=== PATIENT | male | born 1950 | race Caucasian/White ===

== ENCOUNTER 2019-04-01 11:00 | Observation (INO) | payer BC, MEDICARE ==
[~2019-04-01] VITALS: Ht 175.3 cm; Wt 102.1 kg
[~2019-04-01 11:00] MED LIST: ASPIRIN81 M1 PO; CADUET 10 MG-21 EACH PO; FLOMAX0.4 MG PO; PANTOPRAZOLE SO40 MG PO; PLAVIX75 MG PO
--- OUTSIDE RECORDS SUMMARY | 2019-04-01 11:04 | XMS REPORT | Summary of Care ---
Author Author [facility] Organization [facility] Address Unknown Phone Unavailable Encounter NICOLAS Fletcher(MEENA) [id number] Date(s): 03/11/16 - 03/11/16 [facility] [address] [place] [address]- Discharge Disposition: Home Attending Physician: Todd Medellin MD Referring Physician: Todd Medellin MD Vital Signs 1 2 3 Most recent to oldest [Reference Range]: 175.26 cm (02/24/16 11:16 AM) Height 125/50 mmHg (03/11/16 10:45 AM) 119/57 mmHg (03/11/16 10:30 AM) 119/56 mmHg (03/11/16 10:15 AM) Blood Pressure [90-140/60-90 mmHg] 16 BRMIN (03/11/16 10:45 AM) 13 BRMIN *LOW* (03/11/16 10:30 AM) 23 BRMIN *HI* (03/11/16 10:15 AM) Respiratory Rate [14-20 BRMIN] 62 bpm (03/11/16 10:45 AM) 60 bpm (03/11/16 6:52 AM) 64 bpm (02/24/16 11:17 AM) Peripheral Pulse Rate [60-100 bpm] 103.807 kg (02/24/16 11:16 AM) Weight 33.8 m2 (02/24/16 11:16 AM) Body Mass Index Problem List Condition Effective Dates Status Health Status Informant Arthritis(Confirmed) Resolved CAD - Coronary Active artery disease(Confirmed) Chicken Resolved pox(Confirmed) GERD Active (gastroesophageal reflux disease)(Confirmed) Hypertension(Confirm Active ed) Hypertension(Confirm Resolved ed) Inguinal Resolved hernia(Confirmed)1 Obesity(Confirmed) Active Reflux(Confirmed) Resolved Sleep Active apnea(Confirmed) Sleep Resolved apnea(Confirmed) 1Bilateral Allergies, Adverse Reactions, Alerts Substance Reaction Severity Status Carafate Lightheaded/Dizzy Active Medications acetaminophen (ANES) Route: IV, Drug form: INJ, ONCE, Stop date: 03/11/16 9:32:00 CDT Start Date: 03/11/16 Stop Date: 03/11/16 Status: Completed albuterol 0.083% inhalation solution 2.49 mg, 3 mL, Route: NEB, Drug form: SOLN, Q20Min, Dosing Weight 104.688, kg, P RN Wheezing, Priority: STAT, Start date: 03/11/16 10:04:00 CDT, Duration: 30 day , Stop date: 04/10/16 10:03:00 CDT Notes: SEE RT DOCUMENTATION (Same as: Nelida) Start Date: 03/11/16 Stop Date: 03/12/16 Status: Discontinued Ancef 2 gm, 100 mL, Route: IVPB, Drug form: INJ, ONCE, Dosing Weight 103.807, kg, Star t date: 02/24/16 11:37:00, Duration: 1 doses or times, Stop date: 02/24/16 11:37 :00, Surgical Prophylaxis Only; For patients < 120 kg Notes: Same as: Ancef Start Date: 02/24/16 Stop Date: 02/24/16 Status: Ordered ceFAZolin (ANES) Route: IV, Drug form: INJ, ONCE, Stop date: 03/11/16 8:21:00 CDT Start Date: 03/11/16 Stop Date: 03/11/16 Status: Completed Colace 100 mg oral capsule 100 mg=1 cap, PO, BID, PRN Constipation, # 20 cap, 0 Refill(s), Pharmacy: [id number] Start Date: 03/11/16 Status: Ordered Dextrose 5% with 0.9% NaCl IV 1,000 mL 1,000 mL, Rate: 125 ml/hr, Infuse over: 8 hr, Route: IV, Dosing Weight 104.688 k g, Total Volume: 1,000, Start date: 03/11/16 10:04:00 CDT, Duration: 30 day, Sto p date: 04/10/16 10:03:00 CDT Start Date: 03/11/16 Stop Date: 03/12/16 Status: Discontinued Dextrose 5% with 0.9% NaCl IV 1000 mL 1,000 mL, Rate: 25 ml/hr, Infuse over: 40 hr, Route: IV, Dosing Weight 104.688 k g, Total Volume: 1,000, Start date: 03/11/16 6:11:00 CDT, Duration: 30 day, Stop date: 04/10/16 6:10:00 CDT Start Date: 03/11/16 Stop Date: 03/11/16 Status: Discontinued diphenhydrAMINE 12.5 mg, 0.25 mL, Route: IVP, Drug form: INJ, Q6H, Dosing Weight 104.688, kg, FL N Itching, Start date: 03/11/16 10:04:00 CDT, Duration: 30 day, Stop date: 04/10 10:03:00 CDT Notes: (Same as: Benadryl) Start Date: 03/11/16 Stop Date: 03/12/16 Status: Discontinued ePHEDrine (ANES) Route: IV, Drug form: INJ, ONCE, Stop date: 03/11/16 8:51:00 CDT Start Date: 03/11/16 Stop Date: 03/11/16 Status: Completed fentaNYL 25 microgram, 0.5 mL, Route: IVP, Drug form: INJ, Q5Min, Dosing Weight 104.688, kg, PRN Pain Score 4-6, Start date: 03/11/16 10:04:00 CDT, Duration: 4 doses or times, Stop date: Limited # of times Notes: (Same as: Sublimaze) Preservative free. Start Date: 03/11/16 Stop Date: 03/12/16 Status: Discontinued fentaNYL (ANES) Route: IV, Drug form: INJ, ONCE, Stop date: 03/11/16 8:26:00 CDT Start Date: 03/11/16 Stop Date: 03/11/16 Status: Completed flumazenil 0.2 mg, 2 mL, Route: IVP, Drug form: INJ, PRN, Dosing Weight 104.688, kg, PRN Be nzodiazepine Reversal, Initial dose, Start date: 03/11/16 10:04:00 CDT, Duration : 30 day, Stop date: 04/10/16 10:03:00 CDT Notes: (Same as: Romazicon) Start Date: 03/11/16 Stop Date: 03/12/16 Status: Discontinued glycopyrrolate (ANES) Route: IV, Drug form: INJ, ONCE, Stop date: 03/11/16 10:02:00 CDT Start Date: 03/11/16 Stop Date: 03/11/16 Status: Completed hydromorphone 0.5 mg, 0.5 mL, Route: IVP, Drug form: INJ, Q5Min, Dosing Weight 104.688, kg, FL N Pain Score 7-10, Start date: 03/11/16 10:04:00 CDT, Duration: 4 doses or times , Stop date: Limited # of times Start Date: 03/11/16 Stop Date: 03/12/16 Status: Discontinued Lactated Ringers Injection IV (ANES) (ANES) Route: IV, Total Volume: 1,000, Start date: 03/11/16 7:35:00 CDT, Stop date: 8:35:00 CDT Start Date: 03/11/16 Stop Date: 03/11/16 Status: Completed Lactated Ringers Injection IV 1,000 mL 1,000 mL, Rate: 125 ml/hr, Infuse over: 8 hr, Route: IV, Dosing Weight 104.688 k g, Total Volume: 1,000, Start date: 03/11/16 10:04:00 CDT, Duration: 30 day, Sto p date: 04/10/16 10:03:00 CDT Start Date: 03/11/16 Stop Date: 03/12/16 Status: Discontinued Lactated Ringers Injection IV 1000 mL 1,000 mL, Rate: 25 ml/hr, Infuse over: 40 hr, Route: IV, Dosing Weight 104.688 k g, Total Volume: 1,000, Start date: 03/11/16 6:11:00 CDT, Duration: 30 day, Stop date: 04/10/16 6:10:00 CDT Start Date: 03/11/16 Stop Date: 03/11/16 Status: Discontinued lidocaine (ANES) Route: IV, Drug form: INJ, ONCE, Stop date: 03/11/16 8:26:00 CDT Start Date: 03/11/16 Stop Date: 03/11/16 Status: Completed meperidine 12.5 mg, 0.25 mL, Route: IVP, Drug form: INJ, Q30Min, Dosing Weight 104.688, kg, PRN Other -See Comment, For shivering, Start date: 03/11/16 10:04:00 CDT, Durat ion: 2 doses or times, Stop date: Limited # of times Notes: (Same As: Demerol) Start Date: 03/11/16 Stop Date: 03/12/16 Status: Discontinued midazolam (ANES) Route: IV, Drug form: SOLN, ONCE, Stop date: 03/11/16 8:21:00 CDT Start Date: 03/11/16 Stop Date: 03/11/16 Status: Completed naloxone 0.04 mg, 0.1 mL, Route: IVP, Drug form: INJ, Q2MIN, Dosing Weight 104.688, kg, P RN Narcotic Reversal, Start date: 03/11/16 10:04:00 CDT, Duration: 8 doses or ti mes, Stop date: Limited # of times Notes: Same as Narcan Start Date: 03/11/16 Stop Date: 03/12/16 Status: Discontinued neostigmine (ANES) Route: IV, Drug form: INJ, ONCE, Stop date: 03/11/16 10:02:00 CDT Start Date: 03/11/16 Stop Date: 03/11/16 Status: Completed ondansetron 4 mg, 2 mL, Route: IVP, Drug form: INJ, ONCE, Dosing Weight 104.688, kg, PRN Francois sea & Vomiting, Start date: 03/11/16 10:04:00 CDT Notes: (Same as: Shalom) MEDICATION WASTE Product Size: 4 mgProduct Was dawn: ___ mg Start Date: 03/11/16 Stop Date: 03/12/16 Status: Discontinued ondansetron (ANES) Route: IV, Drug form: INJ, ONCE, Stop date: 03/11/16 8:26:00 CDT Start Date: 03/11/16 Stop Date: 03/11/16 Status: Completed oxyCODONE 5 mg, 1 tab, Route: PO, Drug form: TAB, Q4H, Dosing Weight 104.688, kg, PRN Pain Score 4-6, Start date: 03/11/16 10:04:00 CDT, Duration: 30 day, Stop date: 03/29 02/11 10:03:00 CDT Notes: (Same as: Roxicodone) Start Date: 03/11/16 Stop Date: 03/12/16 Status: Discontinued oxyCODONE 10 mg, 2 tab, Route: PO, Drug form: TAB, Q4H, Dosing Weight 104.688, kg, PRN Liborio n Score 7-10, Start date: 03/11/16 10:04:00 CDT, Duration: 30 day, Stop date: 10:03:00 CDT Notes: (Same as: Roxicodone) Start Date: 03/11/16 Stop Date: 03/12/16 Status: Discontinued promethazine + Sodium Chloride 0.9% IV 50 mL 6.25 mg, 0.25 mL, Route: IVPB, ONCE, Dosing Weight 104.688, kg, PRN Nausea & Vomiting, Start date: 03/11/16 10:04:00 CDT Notes: Do not give IV push. (Same as: Phenergan) Start Date: 03/11/16 Stop Date: 03/12/16 Status: Discontinued propofol (ANES) Route: IV, Drug form: INJ, ONCE, Stop date: 03/11/16 8:26:00 CDT Start Date: 03/11/16 Stop Date: 03/11/16 Status: Completed rocuronium (ANES) Route: IV, Drug form: INJ, ONCE, Stop date: 03/11/16 8:26:00 CDT Start Date: 03/11/16 Stop Date: 03/11/16 Status: Completed ropivacaine 0.2% 6 mL, Route: NERVE BLOCK, Dosing Weight 104.688, kg, ONCE, to left abdomen, Star t date: 03/11/16 10:04:00 CDT, Stop date: 03/11/16 10:04:00 CDT Start Date: 03/11/16 Stop Date: 03/11/16 Status: Completed ropivacaine 0.2% 6 mL, Route: NERVE BLOCK, Dosing Weight 104.688, kg, ONCE, to right abdomen, Sta rt date: 03/11/16 10:06:00 CDT, Stop date: 03/11/16 10:06:00 CDT Start Date: 03/11/16 Stop Date: 03/11/16 Status: Completed Sodium Chloride 0.9% IV 1,000 mL 1,000 mL, Rate: 125 ml/hr, Infuse over: 8 hr, Route: IV, Dosing Weight 104.688 k g, Total Volume: 1,000, Start date: 03/11/16 10:04:00 CDT, Duration: 30 day, Sto p date: 04/10/16 10:03:00 CDT Start Date: 03/11/16 Stop Date: 03/12/16 Status: Discontinued Sodium Chloride 0.9% IV 1000 mL 1,000 mL, Rate: 25 ml/hr, Infuse over: 40 hr, Route: IV, Dosing Weight 104.688 k g, Total Volume: 1,000, Start date: 03/11/16 6:11:00 CDT, Duration: 30 day, Stop date: 04/10/16 6:10:00 CDT Start Date: 03/11/16 Stop Date: 03/11/16 Status: Discontinued Tylenol with Codeine #3 oral tablet 1 tab, PO, Q6H, PRN pain, X 7 day, # 28 tab, 0 Refill(s) Start Date: 03/11/16 Stop Date: 03/18/16 Status: Ordered Results ELECTROLYTES Most recent to 1 oldest [Reference Range]: Sodium Lvl [135-145 138 mEq/L mEq/L] (02/24/16 11:39 AM) Potassium Lvl 4.2 mEq/L [3.5-5.1 mEq/L] (02/24/16 11:39 AM) Chloride Lvl [95-109 103 mEq/L mEq/L] (02/24/16 11:39 AM) CO2 [24-32 mEq/L] 29 mEq/L (02/24/16 11:39 AM) AGAP [10.0-20.0 10.2 mEq/L mEq/L] (02/24/16 11:39 AM) CHEM PANEL Most recent to 1 oldest [Reference Range]: Creatinine Lvl 0.90 mg/dL [0.50-1.40 mg/dL] (02/24/16 11:39 AM) eGFR 88 mL/min/1.73m2 1 *NA* (02/24/16 11:39 AM) BUN [7-22 mg/dL] 18 mg/dL (02/24/16 11:39 AM) B/C Ratio [6-25] 20 (02/24/16 11:39 AM) Glucose Lvl [70-99 96 mg/dL mg/dL] (02/24/16 11:39 AM) Total Protein 7.4 g/dL [6.4-8.4 g/dL] (02/24/16 11:39 AM) Albumin Lvl [3.5-5.0 3.8 g/dL g/dL] (02/24/16 11:39 AM) Globulin [2.0-4.0 3.6 g/dL g/dL] (02/24/16 11:39 AM) A/G Ratio [0.7-1.6] 1.1 (02/24/16 11:39 AM) Calcium Lvl 8.8 mg/dL [8.5-10.5 mg/dL] (02/24/16 11:39 AM) ALT [0-65 unit/L] 39 unit/L (02/24/16 11:39 AM) AST [0-37 unit/L] 25 unit/L (02/24/16 11:39 AM) Alk Phos [39-136 48 unit/L unit/L] (02/24/16 11:39 AM) Bili Total [0.2-1.3 0.7 mg/dL mg/dL] (02/24/16 11:39 AM) 1Result Comment: The eGFR is calculated using the CKD-EPI formula. In most young, healthy individuals the eGFR will be >90 mL/min/1.73m2. The eGFR declines with age. An eGFR of 60-89 may be normal in some populations, particularly the elderly, for whom the CKD-EPI formula has not been extensively validated. Use of the eGFR is not recommended in the following populations: Individuals with unstable creatinine concentrations, including patients and those with serious co-morbid conditions. Patients with extremes in muscle mass or diet. The data above are obtained from the National Kid[employer] Disease Education Program ( NKDEP) which additionally recommends that when the eGFR is used in patients with extremes of body mass index for purposes of drug dosing, the eGFR should be mul tiplied by the estimated BMI. HEMATOLOGY Most recent to 1 oldest [Reference Range]: WBC [3.7-10.4 K/CMM] 7.3 K/CMM (02/24/16 11:39 AM) RBC [4.70-6.10 4.92 M/CMM M/CMM] (02/24/16 11:39 AM) Hgb [14.0-18.0 g/dL] 15.1 g/dL (02/24/16 11:39 AM) Hct [42.0-54.0 %] 45.8 % (02/24/16 11:39 AM) MCV [80.0-94.0 fL] 93.1 fL (02/24/1639 AM) MCH [27.0-31.0 pg] 30.7 pg (02/24/16:39 AM) MCHC [32.0-36.0 33.0 g/dL g/dL] (02/24/16 1139 AM) RDW [11.5-14.5 %] 13.9 % (02/24/16 11:39 AM) Platelet [133-450 218 K/CMM K/CMM] (02/24/16 11:39 AM) MPV [7.4-10.4 fL] 7.4 fL (02/24/16 11:39 AM) Segs [45.0-75.0 %] 70.7 % (02/24/16 11:39 AM) Lymphocytes 18.1 % [20.0-40.0 %] *LOW* (02/24/16:39 AM) Monocytes [2.0-12.0 8.1 % %] (02/24/16 11:39 AM) Eosinophils [0.0-4.0 2.7 % %] (02/24/16 11:39 AM) Basophils [0.0-1.0 0.4 % %] (02/24/16 11:39 AM) Segs-Bands # 5.1 K/CMM [1.5-8.1 K/CMM] (02/24/16 11:39 AM) Lymphocytes # 1.3 K/CMM [1.0-5.5 K/CMM] (02/24/16 11:39 AM) Monocytes # [0.0-0.8 0.6 K/CMM K/CMM] (02/24/16 11:39 AM) Eosinophils # 0.2 K/CMM [0.0-0.5 K/CMM] (02/24/16 11:39 AM) Immunizations No data available for this section Procedures Procedure Date Related Diagnosis Body Site Placement of stent1 2012 Cholecystectomy 2003 Placement of stent2 2003 CABG x 2 - Coronary artery bypass grafts x 2 1994 1x2 2x2 Social History Social History Type Response Substance Abuse Use: None. Alcohol Never Smoking Status Former smoker; Type: Cigarettes; Tobacco use per day: 20; Exposure to Tobacco Smoke None; Cigarette Smoking Last 365 Days No; Reg Smoking Cessation Counseling No Assessment and Plan No data available for this section
--- OUTSIDE RECORDS SUMMARY | 2019-04-01 11:04 | XMS REPORT | Continuity of Care Document ---
Author Author [facility] Interface Address Unknown Phone Unavailable Problems Problem Status Onset Date Classification Date Reported Comments Source UNK Active 01/14/2016 [facility] Arthritis Resolved Problem 03/14/2016 [facility] CAD - Coronary artery disease Active Problem 03/14/2016 [facility] Chicken pox Resolved Problem 03/14/2016 [facility] GERD (<span ID="[id number]">Confirmed</span>) Active Problem 03/14/2016 [facility] Hypertension Active Problem 03/14/2016 [facility] Inguinal hernia<sup>1</sup> Resolved Problem 03/14/2016 Bilateral [facility] Obesity Active Problem 03/14/2016 [facility] Reflux Resolved Problem 03/14/2016 [facility] Sleep apnea Active Problem 03/14/2016 [facility] Shortness of breath Active Problem 12/24/2018 Reed Foreman S/P right coronary artery stent placement Active Problem 12/24/2018 Reed Foreman Hypercholesterolemia Active Problem 12/24/2018 Reed Foreman Dilated aortic root Active Problem 12/24/2018 Reed Foreman Non-rheumatic mitral regurgitation Active Problem 12/24/2018 Reed Foreman Nonrheumatic tricuspid insufficiency Active Problem 12/24/2018 Reed Foreman Former smoker Active Problem 12/24/2018 Reed Foreman Sinus bradycardia Active Problem 12/24/2018 Reed Foreman CAD of artery bypass graft Active Problem 12/24/2018 Reed Foreman Hypertension, benign Active Problem 12/24/2018 Reed Foreman Arteriosclerosis of both carotid arteries Active Problem 12/24/2018 Reed Foreman Abnormal EKG Active Problem 12/24/2018 Reed Foreman Encounter for pre-operative cardiovascular clearance Active Diagnosis 08/21/2017 Reed Foreman Precordial pain Active Problem 12/24/2018 Reed Foreman GERD Active Problem 12/30/2016 Reed Foreman Nonrheumatic tricuspid valve disorder Active Problem 12/30/2016 Reed Foreman Mitral valve disorder Active Problem 12/30/2016 Reed Ashleigh Foreman History of PTCA Active Problem 12/30/2016 Jhonclaudia Sotelo Ahsan UNIL INGUINAL HERNIA, W/O OBST OR GANGR, Active [facility] Medications Medication Details Route Status Patient Instructions Ordering Provider Order Date Source Ropivacaine hydrochloride 2 MG/ML Injectable Solution [Naropin] 6 mL, Route: NERVE BLOCK, Dosing Weight 104.688, kg, ONCE, to right abdomen, Start date: 03/11/16 10:06:00 CDT, Stop date: 03/11/16 10:06:00 CDT Inactive 03/11/2016 [facility] Meperidine 12.5 mg, 0.25 mL, Route: IVP, Drug form: INJ, Q30Min, Dosing Weight 104.688, kg, PRN Other -See Comment, For shivering, Start date: 03/11/16 10:04:00 CDT, Duration: 2 doses or times, Stop date: Limited # of timesNotes: (Same As: Demerol) No Longer Active 03/11/2016 [facility] Flumazenil 0.2 mg, 2 mL, Route: IVP, Drug form: INJ, PRN, Dosing Weight 104.688, kg, PRN Benzodiazepine Reversal, Initial dose, Start date: 03/11/16 10:04:00 CDT, Duration: 30 day, Stop date: 04/10/16 10:03:00 CDTNotes: (Same as: Romazicon) No Longer Active 03/11/2016 [facility] Diphenhydramine 12.5 mg, 0.25 mL, Route: IVP, Drug form: INJ, Q6H, Dosing Weight 104.688, kg, PRN Itching, Start date: 03/11/16 10:04:00 CDT, Duration: 30 day, Stop date: 04/10/16 10:03:00 CDTNotes: (Same as: Benfernando yl) No Longer Active 03/11/2016 [facility] Albuterol 0.83 MG/ML Inhalant Solution 2.49 mg, 3 mL, Route: NEB, Drug form: SOLN, Q20Min, Dosing Weight 104.688, kg, PRN Wheezing, Priority: STAT, Start date: 03/11/16 10:04:00 CDT, Duration: 30 day, Stop date: 04/10/16 10:03:00 CDTNotes: SEE RT DOCUMENTATION (Same as: Proventil) No Longer Active 03/11/2016 [facility] Naloxone 0.04 mg, 0.1 mL, Route: IVP, Drug form: INJ, Q2MIN, Dosing Weight 104.688, kg, PRN Narcotic Reversal, Start date: 03/11/16 10:04:00 CDT, Duration: 8 doses or times, Stop date: Limited # of timesNotes: Same as Narcan No Longer Active 03/11/2016 [facility] Promethazine 6.25 mg, 0.25 mL, Route: IVPB, ONCE, Dosing Weight 104.688, kg, PRN Nausea & Vomiting, Start date: 03/11/16 10:04:00 CDTNotes: Do not give IV push. (Same as: Phenergan) No Longer Active 03/11/2016 [facility] Ondansetron 4 mg, 2 mL, Route: IVP, Drug form: INJ, ONCE, Dosing Weight 104.688, kg, PRN Nausea & Vomiting, Start date: 03/11/16 10:04:00 CDTNotes: (Same as: Zofran) MEDICATION WASTE Product Size: 4 mg Product Wasted: ___ mg No Longer Active 03/11/2016 [facility] Oxycodone 5 mg, 1 tab, Route: PO, Drug form: TAB, Q4H, Dosing Weight 104.688, kg, PRN Pain Score 4-6, Start date: 03/11/16 10:04:00 CDT, Duration: 30 day, Stop date: 04/10/16 10:03:00 CDTNotes: (Same as: Roxic odone) No Longer Active 03/11/2016 [facility] Fentanyl 25 microgram, 0.5 mL, Route: IVP, Drug form: INJ, Q5Min, Dosing Weight 104.688, kg, PRN Pain Score 4-6, Start date: 03/11/16 10:04:00 CDT, Duration: 4 doses or times, Stop date: Limited # of timesNotes: (Same as: Sublimaze) Preservative free. No Longer Active 03/11/2016 [facility] Hydromorphone 0.5 mg, 0.5 mL, Route: IVP, Drug form: INJ, Q5Min, Dosing Weight 104.688, kg, PRN Pain Score 7-10, Start date: 03/11/16 10:04:00 CDT, Duration: 4 doses or times, Stop date: Limited # of times No Longer Active 03/11/2016 [facility] Glucose 50 MG/ML / Sodium Chloride 0.154 MEQ/ML Injectable Solution 1,000 mL, Rate: 125 ml/hr, Infuse over: 8 hr, Route: IV, Dosing Weight 104.688 kg, Total Volume: 1,000, Start date: 03/11/16 10:04:00 CDT, Duration: 30 day, Stop date: 04/10/16 10:03:00 CDT No Longer Active 03/11/2016 [facility] Sodium Chloride 0.154 MEQ/ML Injectable Solution 1,000 mL, Rate: 125 ml/hr, Infuse over: 8 hr, Route: IV, Dosing Weight 104.688 kg, Total Volume: 1,000, Start date: 03/11/16 10:04:00 CDT, Duration: 30 day, Stop date: 04/10/16 10:03:00 CDT No Longer Active 03/11/2016 [facility] Calcium Chloride 0.0014 MEQ/ML / Potassium Chloride 0.004 MEQ/ML / Sodium Chloride 0.103 MEQ/ML / Sodium Lactate 0.028 MEQ/ML Injectable Solution 1,000 mL, Rate: 125 ml/hr, Infuse over: 8 hr, Route: IV, Dosing Weight 104.688 kg, Total Volume: 1,000, Start date: 03/11/16 10:04:00 CDT, Duration: 30 day, Stop date: 04/10/16 10:03:00 CDT No Longer Active 03/11/2016 [facility] Ropivacaine hydrochloride 2 MG/ML Injectable Solution [Naropin] 6 mL, Route: NERVE BLOCK, Dosing Weight 104.688, kg, ONCE, to left abdomen, Start date: 03/11/16 10:04:00 CDT, Stop date: 03/11/16 10:04:00 CDT Inactive 03/11/2016 [facility] glycopyrrolate (ANES) Route: IV, Drug form: INJ, ONCE, Stop date: 03/11/16 10:02:00 CDT Inactive 03/11/2016 [facility] neostigmine (ANES) Route: IV, Drug form: INJ, ONCE, Stop date: 03/11/16 10:02:00 CDT Inactive 03/11/2016 [facility] Acetaminophen 300 MG / Codeine Phosphate 30 MG Oral Tablet [Tylenol with Codeine #3] 1 tab, PO, Q6H, PRN pain, X 7 day, # 28 tab, 0 Refill(s) Active 03/11/2016 [facility] Docusate Sodium 100 MG Oral Capsule [Colace] 100 mg=1 cap, PO, BID, PRN Constipation, # 20 cap, 0 Refill(s), Pharmacy: [facility]/pharmacy #[id number] Active 03/11/2016 [facility] acetaminophen (ANES) Route: IV, Drug form: INJ, ONCE, Stop date: 03/11/16 9:32:00 CDT Inactive 03/11/2016 [facility] ePHEDrine (ANES) Route: IV, Drug form: INJ, ONCE, Stop date: 03/11/16 8:51:00 CDT Inactive 03/11/2016 [facility] rocuronium (ANES) Route: IV, Drug form: INJ, ONCE, Stop date: 03/11/16 8:26:00 CDT Inactive 03/11/2016 [facility] propofol (ANES) Route: IV, Drug form: INJ, ONCE, Stop date: 03/11/16 8:26:00 CDT Inactive 03/11/2016 [facility] fentaNYL (ANES) Route: IV, Drug form: INJ, ONCE, Stop date: 03/11/16 8:26:00 CDT Inactive 03/11/2016 [facility] lidocaine (ANES) Route: IV, Drug form: INJ, ONCE, Stop date: 03/11/16 8:26:00 CDT Inactive 03/11/2016 [facility] ondansetron (ANES) Route: IV, Drug form: INJ, ONCE, Stop date: 03/11/16 8:26:00 CDT Inactive 03/11/2016 [facility] midazolam (ANES) Route: IV, Drug form: SOLN, ONCE, Stop date: 03/11/16 8:21:00 CDT Inactive 03/11/2016 [facility] ceFAZolin (ANES) Route: IV, Drug form: INJ, ONCE, Stop date: 03/11/16 8:21:00 CDT Inactive 03/11/2016 [facility] Lactated Ringers Injection IV (ANES) (ANES) Route: IV, Total Volume: 1,000, Start date: 03/11/16 7:35:00 CDT, Stop date: 03/11/16 8:35:00 CDT Inactive 03/11/2016 [facility] Calcium Chloride 0.0014 MEQ/ML / Potassium Chloride 0.004 MEQ/ML / Sodium Chloride 0.103 MEQ/ML / Sodium Lactate 0.028 MEQ/ML Injectable Solution 1,000 mL, Rate: 25 ml/hr, Infuse over: 40 hr, Route: IV, Dosing Weight 104.688 kg, Total Volume: 1,000, Start date: 03/11/16 6:11:00 CDT, Duration: 30 day, Stop date: 04/10/16 6:10:00 CDT Inactive 03/11/2016 [facility] Sodium Chloride 0.154 MEQ/ML Injectable Solution 1,000 mL, Rate: 25 ml/hr, Infuse over: 40 hr, Route: IV, Dosing Weight 104.688 kg, Total Volume: 1,000, Start date: 03/11/16 6:11:00 CDT, Duration: 30 day, Stop date: 04/10/16 6:10:00 CDT Inactive 03/11/2016 [facility] Glucose 50 MG/ML / Sodium Chloride 0.154 MEQ/ML Injectable Solution 1,000 mL, Rate: 25 ml/hr, Infuse over: 40 hr, Route: IV, Dosing Weight 104.688 kg, Total Volume: 1,000, Start date: 03/11/16 6:11:00 CDT, Duration: 30 day, Stop date: 04/10/16 6:10:00 CDT Inactive 03/11/2016 [facility] Ancef 2 gm, 100 mL, Route: IVPB, Drug form: INJ, ONCE, Dosing Weight 103.807, kg, Start date: 02/24/16 11:37:00, Duration: 1 doses or times, Stop date: 02/24/16 11:37:00, Surgical Prophylaxis Only; For patients Notes: Same as: Ancef Inactive 02/24/2016 [facility] Amlodipine Besylate 1 tablet by mouth Active 5 MG by mouth daily Ahsan Mcbride O Jeradriel CoQ-10 1 capsule with a meal Orally Active 200 MG Orally [facility] Pantoprazole Sodium 1 tablet Orally Active 40 mg Orally PRN [facility] Maceadriel Clopidogrel Bisulfate 1 tablet Orally Active 75 mg Orally [facility] a [facility] Amlodipine Besylate 1 tablet NA [facility] Tamsulosin HCl 1 tablet Orally Active 0.4 MG Orally Once a [facility] Lamisil 1 tablet Orally Active 250 MG Orally Once a day [facility] Multivitamins as directed Orally Active Orally Once a day [facility] Vitamin E 1 capsule Orally Active 100 UNIT Orally Once a day [facility] Vitamin D 2 tablets Orally Active 400 UNIT Orally Once a day [facility] Aspirin 1 tablet Orally Active 81 MG Orally Once a day [facility] Ashleigh Maceadriel Atorvastatin Calcium 1 tablet Orally Active 40 mg Orally Once a day [facility] Vitamin C not defined Orally Active 500 MG Orally [facility] Reed Maceadriel Amlodipine Besylate 1 tablet Orally Active 10 mg Orally twice a day (bid) [facility] Metformin HCl 1 tablet with meals Orally Active 500 mg Orally daily [facility] Reed Maceadriel Symbicort 2 puffs Inhalation Active 160-4.5 MCG/ACT Inhalation Twice a day [facility] Ashleigh Maceadriel Amlodipine Besylate 1 tablet by mouth Active 5MG by mouth twice a day (bid) [facility] Clopidogrel Bisulfate 1 tablet Orally Active 75 mg Orally Once a day [facility] Pantoprazole Sodium 1 tablet Orally Active 40 mg Orally [facility]N [facility] Vitamin C not defined Orally Active 500 MG Orally [facility] Ashleigh Maceadriel Pravastatin Sodium TAKE ONE (1) TABLET(S) BY MOUTH AT BEDTIME. Oral Active 40 MG Oral [facility] Tamsulosin HCl 1 tablet Orally Active 0.4 MG Orally Once a day [facility] Ashleigh Maceadriel Multivitamins as directed Orally Active Orally Once a day Jerouadriel Foreman Vitamin E 1 capsule Orally Active 100 UNIT Orally Once a day Rodriadriel Foreman Aspirin 1 tablet Orally Active 81 MG Orally Once a day Rodriadriel Foreman Tizanidine HCl TAKE ONE (1) TABLET(S) BY MOUTH ONCE A DAY AT BEDTIME NEEDED FOR MUSCLE PAIN. Oral Active 4 MG Oral Rodriadriel Foreman CoQ-10 1 capsule with a meal Orally Active 200 MG Orally Once a day [facility] Reed Foreman Vitamin D 2 tablets Orally Active 400 UNIT Orally Once a day Rodriadriel Foreman Clopidogrel Bisulfate 1 tablet Orally Active 75MG Orally Once a day [facility] Reed Foreman Allergies, Adverse Reactions, Alerts Substance Category Reaction Severity Reaction type Status Date Reported Comments Source Carafate Adverse Reaction dizziness Adverse Reaction Active 01/06/2018 Reed Foreman Immunizations Immunization Date Given Site Status Last Updated Comments Source Results Order Name Results Value Reference Range Date Interpretation Comments Source CHEM PANEL B/C Ratio 20 6 - 25 02/24/2016 [facility] CHEM PANEL Globulin 3.6 g/dL 2.0 - 4.0 02/24/2016 [facility] CHEM PANEL AGAP 10.2 meq/L 10.0 - 20.0 02/24/2016 [facility] CHEM PANEL A/G Ratio 1.1 0.7 - 1.6 02/24/2016 [facility] PANEL eGFR 88 mL/min/1.73m2 02/24/2016 Result Comment: The eGFR is calculated using the [...] from the National Kidney Disease Education Program (NKDEP) which additionally recommends that when the eGFR is used in patients with extremes of body mass index for purposes of drug dosing, the eGFR should be multiplied by the estimated BMI. [facility] CHEM PANEL Glucose Lvl 96 mg/dL 70 - 99 02/24/2016 [facility] CHEM PANEL Albumin Lvl 3.8 g/dL 3.5 - 5.0 02/24/2016 [facility] CHEM PANEL Calcium Lvl 8.8 mg/dL 8.5 - 10.5 02/24/2016 [facility] CHEM PANEL Chloride Lvl 103 meq/L 95 - 109 02/24/2016 [facility] CHEM PANEL Total Protein 7.4 g/dL 6.4 - 8.4 02/24/2016 [facility] CHEM PANEL CO2 29 meq/L 24 - 32 02/24/2016 [facility] CHEM PANEL Sodium Lvl 138 meq/L 135 - 145 02/24/2016 [facility] CHEM PANEL BUN 18 mg/dL 7 - 22 02/24/2016 [facility] CHEM PANEL Potassium Lvl 4.2 meq/L 3.5 - 5.1 02/24/2016 [facility] CHEM PANEL Creatinine Lvl 0.90 mg/dL 0.50 - 1.40 02/24/2016 [facility] CHEM PANEL AST 25 unit/L 0 - 37 02/24/2016 [facility] CHEM PANEL Alk Phos 48 unit/L 39 - 136 02/24/2016 [facility] CHEM PANEL ALT 39 unit/L 0 - 65 02/24/2016 [facility] CHEM PANEL Bili Total 0.7 mg/dL 0.2 - 1.3 02/24/2016 [facility] HEMATOLOGY MCHC 33.0 g/dL 32.0 - 36.0 02/24/2016 [facility] HEMATOLOGY RDW 13.9 % 11.5 - 14.5 02/24/2016 [facility] HEMATOLOGY Platelet 218 K/CMM 133 - 450 02/24/2016 [facility] HEMATOLOGY MPV 7.4 fL 7.4 - 10.4 02/24/2016 [facility] HEMATOLOGY MCV 93.1 fL 80.0 - 94.0 02/24/2016 [facility] HEMATOLOGY MCH 30.7 pg 27.0 - 31.0 02/24/2016 [facility] HEMATOLOGY WBC 7.3 K/CMM 3.7 - 10.4 02/24/2016 [facility] HEMATOLOGY RBC 4.92 M/CMM 4.70 - 6.10 02/24/2016 [facility] HEMATOLOGY Hgb 15.1 g/dL 14.0 - 18.0 02/24/2016 [facility] HEMATOLOGY Hct 45.8 % 42.0 - 54.0 02/24/2016 [facility] HEMATOLOGY Eosinophils # 0.2 K/CMM 0.0 - 0.5 02/24/2016 [facility] HEMATOLOGY Monocytes # 0.6 K/CMM 0.0 - 0.8 02/24/2016 [facility] HEMATOLOGY Lymphocytes 18.1 % 20.0 - 40.0 02/24/2016 [facility] HEMATOLOGY Monocytes 8.1 % 2.0 - 12.0 02/24/2016 [facility] HEMATOLOGY Segs 70.7 % 45.0 - 75.0 02/24/2016 [facility] HEMATOLOGY Eosinophils 2.7 % 0.0 - 4.0 02/24/2016 [facility] HEMATOLOGY Segs-Bands # 5.1 K/CMM 1.5 - 8.1 02/24/2016 [facility] HEMATOLOGY Basophils 0.4 % 0.0 - 1.0 02/24/2016 [facility] HEMATOLOGY Lymphocytes # 1.3 K/CMM 1.0 - 5.5 02/24/2016 [facility] Vital Signs Vital Sign Value Date Comments Source Weight 220 01/06/2018 Mohamed O Jeroudi Height 69 01/06/2018 Mohamed O Jeroudi Temperature Oral (F) 95.0 F 01/06/2018 Mohamed O Jeroudi Heart Rate 63 01/06/2018 Mohamed O Jeroudi Diastolic (mm Hg) 70 01/06/2018 Mohamed O Jeroudi Systolic (mm Hg) 118 01/06/2018 Mohamed O Jeroudi Weight 233 01/19/2017 Mohamed O Jeroudi Height 69 01/19/2017 Mohamed O Jeroudi Temperature Oral (F) 98.1 F 01/19/2017 Mohamed O Jeroudi Heart Rate 60 01/19/2017 Mohamed O Jeroudi Diastolic (mm Hg) 78 01/19/2017 Mohamed O Jeroudi Systolic (mm Hg) 132 01/19/2017 Mohamed O Jeroudi Weight 233 01/04/2017 Mohamed O Jeroudi Height 69 01/04/2017 Mohamed O Jeroudi Temperature Oral (F) 96.6 F 01/04/2017 Mohamed O Jeroudi Heart Rate 59 01/04/2017 Mohamed O Jeroudi Diastolic (mm Hg) 74 01/04/2017 Mohamed O Jeroudi Systolic (mm Hg) 122 01/04/2017 Mohamed O Jeroudi Respitory Rate 16 03/11/2016 [facility] Systolic (mm Hg) 125 03/11/2016 [facility] Diastolic (mm Hg) 50 03/11/2016 [facility] Heart Rate 62 03/11/2016 [facility] Systolic (mm Hg) 119 03/11/2016 [facility] Diastolic (mm Hg) 57 03/11/2016 [facility] Respitory Rate 13 03/11/2016 [facility] Systolic (mm Hg) 119 03/11/2016 [facility] Diastolic (mm Hg) 56 03/11/2016 [facility] Respitory Rate 23 03/11/2016 [facility] Heart Rate 60 03/11/2016 [facility] Heart Rate 64 02/24/2016 [facility] BMI Calculated 33.8 02/24/2016 [facility] Weight 103.807 02/24/2016 [facility] Height 175.26 cm 02/24/2016 [facility] Weight 227 12/30/2015 Reed Foreman Height 69 12/30/2015 Mohamed O Balwinderdi Temperature Oral (F) 97.2 F 12/30/[facility] Rate 60 12/30/2015 Reed Foreman Diastolic (mm Hg) 60 12/30/2015 Reed Foreman Systolic (mm Hg) 124 12/30/2015 Reed Foreman Weight 225 [facility]/16/2015 [facility] Height 69 12/16/2015 Jhonamed O Rodrioudi Temperature Oral (F) 97.0 F 12/16/2015 Mohclaudia Foreman Heart Rate 62 12/16/2015 Jhonamed Ashleigh Brittdi Diastolic (mm Hg) 82 12/16/2015 Reed Foreman Systolic (mm Hg) 146 12/16/2015 Reed Foreman Encounters Location Location Details Encounter Type Encounter Number Reason For Visit Attending Provider ADM Date DC Date Status Source Reed Foreman MD PA Unknown [id number] 03/13/2014 03/13/2014 Reed Foreman MD PA Unknown [id number] 03/13/2014 03/13/2014 Reed Foreman MD PA Unknown [id number] 03/13/2014 03/13/2014 Reed Foreman MD PA Unknown [id number] 05/11/2014 05/11/2014 Reed Foreman MD PA Unknown [id number] 05/11/2014 05/11/2014 Reed Foreman MD PA Unknown [id number] 05/11/2014 05/11/2014 Reed Foreman MD PA Unknown [id number] 05/28/2014 05/28/2014 Rede Foreman MD PA Unknown [id number] 05/28/2014 05/28/2014 Reed Foreman MD PA Unknown [id number] 05/28/2014 05/28/2014 Reed Foreman MD PA Unknown [id number] 07/23/2014 07/23/2014 Reed Foreman MD PA Unknown [id number] 07/23/2014 07/23/2014 Reed Foreman MD PA Unknown [id number] 07/23/2014 07/23/2014 Reed Foreman MD PA Unknown [id number] 12/31/2014 12/31/2014 Reed Foreman MD PA Unknown [id number] 12/31/2014 12/31/2014 Reed Foreman MD PA Unknown [id number] 12/31/2014 12/31/2014 Reed Foreman MD PA Unknown [id number] 12/31/2014 12/31/2014 MD TARA Mcnulty Unknown [id number] 12/31/2014 12/31/2014 MD TARA Mcnulty Unknown [id number] 12/31/2014 12/31/2014 Reed Foreman MD PA Unknown [id number] 02/27/2015 02/27/2015 Reed Foreman MD PA Unknown [id number] 02/27/2015 02/27/2015 Reed Foreman MD PA Unknown [id number] 02/27/2015 02/27/2015 Reed Foreman MD PA Unknown [id number] 03/12/2015 03/12/2015 Reed Foreman MD PA Unknown [id number] 03/12/2015 03/12/2015 Reed Foreman, MD PA Unknown [id number] 03/12/2015 03/12/2015 Reed Foreman MD PA Unknown [id number] 03/12/2015 03/12/2015 Reed Foreman MD PA Unknown [id number] 03/12/2015 03/12/2015 Reed Foreman MD PA Unknown [id number] 03/12/2015 03/12/2015 Reed Foreman MD PA Unknown [id number] 03/12/2015 03/12/2015 Reed Foreman MD PA Unknown [id number] 03/12/2015 03/12/2015 MD TARA Mcnulty Unknown [id number] 03/12/2015 03/12/2015 Reed Foreman MD PA Unknown [id number] 03/12/2015 03/12/2015 Reed Foreman MD PA Unknown [id number] 03/12/2015 03/12/2015 Reed Foreman MD PA Unknown [id number] 03/12/2015 03/12/2015 Reed Foreman [facility] [id number] DEMARCUS SOLANO 02/25/2016 Active [facility] Out[facility] [id number] BROOKS LE 03/06/2016 Active [facility] Outpatient [id number] BROOKS LE 03/11/2016 Active [facility] Day Surgery [id number] Brooks Le 03/11/2016 03/11/2016 [facility] Outpatient [id number] YONI HINH 03/11/2016 Active [facility] Outpatient [id number] BROOKS LE 03/24/2016 Active [facility] Reed Foreman MD PA Unknown [id number] 12/21/2016 12/21/2016 Reed Foreman MD PA Unknown [id number] 12/21/2016 12/21/2016 MD TARA Mcnulty Unknown [id number] 12/22/2016 12/22/2016 Reed Foreman MD PA Unknown [id number] 12/22/2016 12/22/2016 Reed Foreman MD PA Unknown [id number] 12/22/2016 12/22/2016 Reed Foreman MD PA Unknown [id number] 12/29/2016 12/29/2016 Reed Foreman Procedures Procedure Code Date Perfomer Comments Source Placement of stent<sup>1</sup> [id number] 11/29/2012 x2 [facility] Cholecystectomy [id number] 11/29/2003 [facility] Placement of stent<sup>2</sup> [id number] 11/29/2003 [facility] CABG x 2 - Coronary artery bypass grafts x 2 [id number] 11/29/1994 [facility]
--- OUTSIDE RECORDS SUMMARY | 2019-04-01 11:05 | XMS REPORT ---
Author Author Reed Foreman Organization eClinicalWorks Address Unknown Phone Unavailable Care Team Providers Care Prepress Manager Name Role Phone Reed Foreman CP Unavailable Allergies, Adverse Reactions, Alerts Substance Reaction Event Type Carafate dizziness Drug Allergy Problems Problem Type Condition Code Onset Dates Condition Status Assessment CAD (coronary artery disease) of artery bypass graft I25.810 Active Problem Former smoker Z87.891 Active Problem S/P right coronary artery (RCA) stent placement Z95.5 Active Problem CAD (coronary artery disease) of artery bypass graft I25.810 Active Problem Abnormal EKG R94.31 Active Problem Sinus bradycardia R00.1 Active Problem Hypercholesterolemia E78.01 Active Problem Arteriosclerosis of both carotid arteries I65.23 Active Problem Hypertension, benign I10 Active Problem Shortness of breath R06.02 Active Assessment Former smoker Z87.891 Active Assessment Hypercholesterolemia E78.01 Active Assessment Encounter for pre-operative cardiovascular clearance Z01.810 Active Assessment Abnormal EKG R94.31 Active Assessment Sinus bradycardia R00.1 Active Assessment Shortness of breath R06.02 Active Assessment Arteriosclerosis of both carotid arteries I65.23 Active Assessment Hypertension, benign I10 Active Assessment S/P right coronary artery (RCA) stent placement Z95.5 Active Medications Medication Code System Code Instructions Start Date End Date Status Dosage Tamsulosin HCl [facility] [address]-48 0.4 MG Orally Once a day Active 1 tablet Clopidogrel Bisulfate [facility] [address]-47 75 mg Orally Once a day Active 1 tablet Multivitamins [facility] 33023-30265 Orally Once a day Active as directed Amlodipine Besylate [facility] [address]-54 10 mg Orally twice a day (bid) Active 1 tablet CoQ-10 [facility] 58039-46921 200 MG Orally Once a day Active 1 capsule with a meal Aspirin [facility] 29252-87812 81 MG Orally Once a day Active 1 tablet Pantoprazole Sodium [facility] [address]-48 40 mg Orally PRN Active 1 tablet Atorvastatin Calcium [facility] [address]-85 40 mg Orally Once a day Active 1 tablet Metformin HCl [facility] [address]-18 500 mg Orally daily Active 1 tablet with meals Symbicort [facility] [address]-34 160-4.5 MCG/ACT Inhalation Twice a day Active 2 puffs Lamisil [facility] [address]-71 250 MG Orally Once a day Active 1 tablet Vital Signs Date/Time: Dec 16, 2015 BMI 33.22 Index Weight 225 lbs Height 69 in Temperature 97.0 F Cardiac Monitoring Heart Rate 62 /min Blood Pressure Diastolic 82 mm Hg Blood Pressure Systolic 146 mm Hg Results No Known Results Summary Purpose eClinicalWorks Submission
--- OUTSIDE RECORDS SUMMARY | 2019-04-01 11:05 | XMS REPORT ---
Author Author Reed Foreman Organization [employer] Address Unknown Phone Unavailable Care Team Providers Care Change Room Attendant Name Role Phone Reed Foreman CP Unavailable Allergies No Known Allergies Problems Problem Type Condition Code Onset Dates Condition Status Problem Shortness of breath R06.02 Active Problem S/P right coronary artery (RCA) stent placement Z95.5 Active Problem Hypercholesterolemia E78.01 Active Problem Dilated aortic root I77.810 Active Problem Non-rheumatic mitral regurgitation I34.0 Active Problem Nonrheumatic tricuspid (valve) insufficiency I36.1 Active Problem Former smoker Z87.891 Active Problem Sinus bradycardia R00.1 Active Problem CAD (coronary artery disease) of artery bypass graft I25.810 Active Problem Hypertension, benign I10 Active Assessment CAD (coronary artery disease) of artery bypass graft I25.810 Active Problem Arteriosclerosis of both carotid arteries I65.23 Active Problem Abnormal EKG R94.31 Active Medications Medication Code System Code Instructions Start Date End Date Status Dosage Clopidogrel Bisulfate [facility] 47944554671 75 mg Orally Once a day Active 1 tablet Results No Known Results Summary Purpose eClinicalWorks Submission
--- OUTSIDE RECORDS SUMMARY | 2019-04-01 11:05 | XMS REPORT ---
Author Author Reed Foreman Organization [employer] Address Unknown Phone Unavailable Care Team Providers Care Rand Butting Machine Operator Name Role Phone Reed Foreman CP Unavailable [...] Instructions Start Date End Date Status Dosage Amlodipine Besylate [facility] 75554889533 5 MG orally one a day Active 2 tablets Results No Known Results Summary Purpose eClinicalWorks Submission
--- OUTSIDE RECORDS SUMMARY | 2019-04-01 11:05 | XMS REPORT ---
Author Author Lianna Foreman Organization [employer] Address Unknown Phone Unavailable Care Team Providers Care Drawer Upfitter Name Role Phone Lianna Foreman Unavailable Allergies, Adverse Reactions, Alerts Substance Reaction Event Type Carafate dizziness Drug Allergy Problems Problem Type Condition Code Onset Dates Condition Status Problem Shortness of breath R06.02 Active Problem S/P right coronary artery (RCA) stent placement Z95.5 Active Problem Hypercholesterolemia E78.01 Active Problem Dilated aortic root I77.810 Active Assessment Former smoker Z87.891 Active Problem Non-rheumatic mitral regurgitation I34.0 Active Problem Nonrheumatic tricuspid (valve) insufficiency I36.1 Active Problem Former smoker Z87.891 Active Problem Sinus bradycardia R00.1 Active Problem CAD (coronary artery disease) of artery bypass graft I25.810 Active Problem Hypertension, benign I10 Active Assessment Hypertension, benign I10 Active Assessment Abnormal EKG R94.31 Active Assessment Hypercholesterolemia E78.01 Active Assessment Shortness of breath R06.02 Active Assessment S/P right coronary artery (RCA) stent placement Z95.5 Active Assessment CAD (coronary artery disease) of artery bypass graft I25.810 Active Assessment Sinus bradycardia R00.1 Active Problem Arteriosclerosis of both carotid arteries I65.23 Active Assessment Arteriosclerosis of both carotid arteries I65.23 Active Problem Abnormal EKG R94.31 Active Medications Medication Code System Code Instructions Start Date End Date Status Dosage Pantoprazole Sodium [facility] [address]-76 40 mg Orally PRN Active 1 tablet Vitamin C [facility] 85433758568 500 MG Orally Active not defined Clopidogrel Bisulfate ND 03078317033 75 mg Orally Once a day Active 1 tablet Pravastatin Sodium [facility] 26648039039 40 MG Oral Active TAKE ONE (1) TABLET(S) BY MOUTH AT BEDTIME. Tamsulosin HCl ND 34827066813 0.4 MG Orally Once a day Active [address] [facility] 93258924323 Orally Once a day Active as directed Vitamin E ND 14611039424 100 UNIT Orally Once a day Active 1 capsule Amlodipine Besylate [facility] 45045437542 5 MG Active [address] [facility] 23274287384 81 MG Orally Once a day Active 1 tablet Tizanidine HCl [facility] 47738367346 4 MG Oral Active TAKE ONE (1) TABLET(S) BY MOUTH ONCE A DAY AT BEDTIME NEEDED FOR MUSCLE PAIN. CoQ-10 [facility] 66065761257 200 MG Orally Once a day Active 1 capsule with a meal Vitamin D [facility] 14078044072 400 UNIT Orally Once a day Active 2 tablets Vital Signs Date/Time: Jan 06, 2018 BMI 32.48 Index Weight 220 lbs Height 69 in Temperature 95.0 F Cardiac Monitoring Heart Rate 63 /min Blood Pressure Diastolic 70 mm Hg Blood Pressure Systolic 118 mm Hg Results No Known Results Summary Purpose eClinicalWorks Submission
--- OUTSIDE RECORDS SUMMARY | 2019-04-01 11:05 | XMS REPORT ---
Author Author Reed Foreman Organization e[employer] Address Unknown Phone Unavailable Care Team Providers Care Housekeeping Department Worker Name Role Phone Reed Foreman CP Unavailable Allergies No Known Allergies Problems Problem Type Condition Code Onset Dates Condition Status Problem Abnormal EKG R94.31 Active Problem Sinus bradycardia R00.1 Active Problem S/P right coronary artery (RCA) stent placement Z95.5 Active Problem Nonrheumatic tricuspid (valve) insufficiency I36.1 Active Problem Dilated aortic root I77.810 Active Problem Precordial pain R07.2 Active Problem Hypertension, benign I10 Active Problem Former smoker Z87.891 Active Problem Non-rheumatic mitral regurgitation I34.0 Active Problem CAD (coronary artery disease) of artery bypass graft I25.810 Active Problem Shortness of breath R06.02 Active Problem Hypercholesterolemia E78.01 Active Problem Arteriosclerosis of both carotid arteries I65.23 Active Medications Medication Code System Code Instructions Start Date End Date Status Dosage Amlodipine Besylate [facility] 07501210728 5MG by mouth twice a day (bid) Active 1 tablet Results No Known Results Summary Purpose eClinicalWorks Submission
--- OUTSIDE RECORDS SUMMARY | 2019-04-01 11:05 | XMS REPORT ---
Author Author Reed Foreman Organization e[employer] Address Unknown Phone Unavailable Care Team Providers Care Furnace Mechanic Name Role Phone Reed Foreman CP Unavailable [...] Date End Date Status Dosage Clopidogrel Bisulfate [facility] 85780101985 75 mg Orally Once a day Active 1 tablet Amlodipine Besylate [facility] 85793784470 5 MG by mouth twice a day (bid) Active 1 tablet Results No Known Results Summary Purpose eClinicalWorks Submission
--- OUTSIDE RECORDS SUMMARY | 2019-04-01 11:05 | XMS REPORT ---
Author Author Reed Foreman Organization eClinicalWorks Address Unknown Phone Unavailable Care Team Providers Care Hydroelectric Station Chief Name Role Phone Reed Foreman CP Unavailable Encounters Encounter Location Date Unknown [place] Dec 31, 2014 Unknown Reed Foreman MD [place] Dec 31, 2014 Unknown [place] February 27, 2015 Unknown [place] March 12, 2015 [place] March 13, 2014 [place] May 11, 2014 Unknown [place] May 28, 2014 Unknown Reed [place] March 12, 2015 Unknown Reed [place] March 12, 2015 Unknown Reed Foreman [place] March 12, 2015 Unknown [place] Dec 21, 2016 Unknown Reed Foreman MD [place] Dec 29, 2016 Unknown Reed Foreman [place] Jul 23, 2014 Unknown Reed Foreman MD [place] Dec 22, 2016 Problems Problem Type Condition ICD-9 Code Onset Dates Condition Status Problem GERD (gastroesophageal reflux disease) K21.9 Active Problem Shortness of breath R06.02 Active Problem Hypercholesterolemia E78.01 Active Problem Sinus bradycardia R00.1 Active Problem CAD (coronary artery disease) of artery bypass graft I25.810 Active Problem Nonrheumatic tricuspid valve disorder I36.9 Active Problem Hypertension, benign I10 Active Problem Mitral valve disorder I05.9 Active Problem History of PTCA Z98.61 Active Problem Abnormal EKG R94.31 Active Problem Encounter for pre-operative cardiovascular clearance Z01.810 Active Problem S/P right coronary artery (RCA) stent placement Z95.5 Active Problem Former smoker Z87.891 Active Assessment CAD (coronary artery disease) of artery bypass graft I25.810 Active Problem Arteriosclerosis of both carotid arteries I65.23 Active Medications Medication Code System Code Instructions Start Date End Date Status Dosage Clopidogrel Bisulfate [facility] [address]-79 75 MG Orally Once a day Active 1 tablet Social History Social History Element Qualifiers Date Reported Smoking . Status Former Smoker Quit in 1983Jan 04, 2017 Alcohol Use No. Jan 04, 2017 Alcohol Screening: Yes. Did you have a drink containing alcohol in the past year?: No, Points: 0, Interpretation: Negative Jan 04, 2017 Marital Status: . Jan 04, 2017 Do you drink alcohol? No. Jan 04, 2017 Occupation: . Self-employed Jan 04, 2017 Family history Qualifier Description Comment Date Reported Maternal Grandmother Comment not available Jan 04, 2017 Paternal Grandmother Comment not available Jan 04, 2017 Siblings Comment not available Jan 04, 2017 Maternal Grandfather Comment not available Jan 04, 2017 Children Comment not available Jan 04, 2017 Father myocardial infarction, Pacemaker Jan 04, 2017 Paternal Grandfather Comment not available Jan 04, 2017 Mother alive Arthritis, heart arrythmia, HTN Jan 04, 2017 Other: Comment not available Jan 04, 2017 Summary Purpose eClinicalWorks Submission
--- OUTSIDE RECORDS SUMMARY | 2019-04-01 11:05 | XMS REPORT ---
Author Author Reed Foreman Organization eClinicalWorks Address Unknown Phone Unavailable Care Team Providers Care Print Line Inspector Name Role Phone Reed Foreman CP Unavailable [...] Instructions Start Date End Date Status Dosage Atorvastatin Calcium [facility] [address]-74 40 mg Orally Once a day Active 1 tablet Aspirin [facility] 49870-09204 81 MG Orally Once a day Active 1 tablet Pantoprazole Sodium [facility] [address]-30 40 mg Orally PRN Active 1 tablet Tamsulosin HCl [facility] [address]-68 0.4 MG Orally Once a day Active 1 tablet Lamisil [facility] [address]-31 250 MG Orally Once a day Active 1 tablet Amlodipine Besylate [facility] [address]-09 10 mg Orally twice a day (bid) Active 1 tablet CoQ-10 [facility] 81545-98990 200 MG Orally Once a day Active 1 capsule with a meal Multivitamins [facility] 12325-07343 Orally Once a day Active as directed Metformin HCl [facility] [address]-55 500 mg Orally daily Active 1 tablet with meals Symbicort [facility] [address]-99 160-4.5 MCG/ACT Inhalation Twice a day Active 2 puffs Clopidogrel Bisulfate [facility] [address]-61 75 mg Orally Once a day Active 1 tablet Vital Signs Date/Time: Dec 30, 2015 BMI 33.52 Index Weight 227 lbs Height 69 in Temperature 97.2 F Cardiac Monitoring Heart Rate 60 /min Blood Pressure Diastolic 60 mm Hg Blood Pressure Systolic 124 mm Hg Results No Known Results Summary Purpose eClinicalWorks Submission
--- OUTSIDE RECORDS SUMMARY | 2019-04-01 11:05 | XMS REPORT ---
Author Author Reed Foreman Organization eClinicalWorks Address Unknown Phone Unavailable Care Team Providers Care Floor Associate Name Role Phone Reed Foreman CP Unavailable [...] Z87.891 Active Assessment Hypercholesterolemia E78.01 Active Assessment Abnormal EKG R94.31 Active Assessment Sinus bradycardia R00.1 Active Assessment Shortness of breath R06.02 Active Assessment Arteriosclerosis of both carotid arteries I65.23 Active Assessment Hypertension, benign I10 Active Assessment S/P right coronary artery (RCA) stent placement Z95.5 Active Medications Medication Code System Code Instructions Start Date End Date Status Dosage CoQ-10 [facility] 52535-89655 200 MG Orally Once a day Active 1 capsule with a meal Pantoprazole Sodium [facility] [address]-51 40 mg Orally PRN Active 1 tablet Clopidogrel Bisulfate [facility] [address]-61 75 mg Orally Once a day Active 1 tablet Amlodipine Besylate [facility] [address]-80 5 MG Active 1 tablet Tamsulosin HCl [facility] [address]-69 0.4 MG Orally Once a day Active 1 tablet Lamisil [facility] [address]-69 250 MG Orally Once a day Active 1 tablet Multivitamins [facility] 44209-29306 Orally Once a day Active as directed Vitamin E [facility] [address]-00 100 UNIT Orally Once a day Active 1 capsule Vitamin D [facility] 07573-23631 400 UNIT Orally Once a day Active 2 tablets Aspirin [facility] 18432-95322 81 MG Orally Once a day Active 1 tablet Atorvastatin Calcium [facility] [address]-77 40 mg Orally Once a day Active 1 tablet Vitamin C [facility] 90160-01282 500 MG Orally Active not defined Vital Signs Date/Time: Jan 04, 2017 BMI 34.40 Index Weight 233 lbs Height 69 in Temperature 96.6 F Cardiac Monitoring Heart Rate 59 /min Blood Pressure Diastolic 74 mm Hg Blood Pressure Systolic 122 mm Hg Results No Known Results Summary Purpose eClinicalWorks Submission
--- OUTSIDE RECORDS SUMMARY | 2019-04-01 11:05 | XMS REPORT ---
Author Author Reed Foreman Organization eClinicalWorks Address Unknown Phone Unavailable Care Team Providers Care Plate Painter Name Role Phone Reed Foreman CP Unavailable Allergies, Adverse Reactions, Alerts Substance Reaction Event Type Carafate dizziness Drug Allergy Problems Problem Type Condition Code Onset Dates Condition Status Problem Arteriosclerosis of both carotid arteries I65.23 Active Problem Shortness of breath R06.02 Active Problem Hypercholesterolemia E78.01 Active Problem Nonrheumatic tricuspid (valve) insufficiency I36.1 Active Assessment Former smoker Z87.891 Active Problem Dilated aortic root I77.810 Active Problem Non-rheumatic mitral regurgitation I34.0 Active Problem Abnormal EKG R94.31 Active Problem Hypertension, benign I10 Active Problem Sinus bradycardia R00.1 Active Problem CAD (coronary artery disease) of artery bypass graft I25.810 Active Assessment Hypertension, benign I10 Active Assessment Abnormal EKG R94.31 Active Assessment Hypercholesterolemia E78.01 Active Assessment Shortness of breath R06.02 Active Assessment S/P right coronary artery (RCA) stent placement Z95.5 Active Assessment CAD (coronary artery disease) of artery bypass graft I25.810 Active Assessment Sinus bradycardia R00.1 Active Problem S/P right coronary artery (RCA) stent placement Z95.5 Active Assessment Arteriosclerosis of both carotid arteries I65.23 Active Problem Former smoker Z87.891 Active Medications Medication Code System Code Instructions Start Date End Date Status Dosage Amlodipine Besylate [facility] [address]-33 5 MG Active 1 tablet Pantoprazole Sodium [facility] [address]-92 40 mg Orally PRN Active 1 tablet Vitamin C [facility] 60370-02591 500 MG Orally Active not defined Vitamin E [facility] [address]-03 100 UNIT Orally Once a day Active 1 capsule Clopidogrel Bisulfate [facility] [address]-40 75 mg Orally Once a day Active 1 tablet Atorvastatin Calcium [facility] [address]-96 40 mg Orally Once a day Active 1 tablet CoQ-10 [facility] 44039-82853 200 MG Orally Once a day Active 1 capsule with a meal Lamisil [facility] [address]-46 250 MG Orally Once a day Active 1 tablet Multivitamins [facility] 74651-90801 Orally Once a day Active as directed Vitamin D [facility] 38361-41969 400 UNIT Orally Once a day Active 2 tablets Aspirin [facility] 73907-76354 81 MG Orally Once a day Active 1 tablet Tamsulosin HCl [facility] [address]-53 0.4 MG Orally Once a day Active 1 tablet Vital Signs Date/Time: Jan 19, 2017 BMI 34.40 Index Weight 233 lbs Height 69 in Temperature 98.1 F Cardiac Monitoring Heart Rate 60 /min Blood Pressure Diastolic 78 mm Hg Blood Pressure Systolic 132 mm Hg Results No Known Results Summary Purpose eClinicalWorks Submission
--- OUTSIDE RECORDS SUMMARY | 2019-04-01 11:05 | XMS REPORT ---
Author Author Reed Foreman Organization eClinicalWorks Address Unknown Phone Unavailable Care Team Providers Care Credit Clerk Name Role Phone Reed Foreman Unavailable Encounters Encounter Location Date Unknown [place] Dec 31, 2014 Unknown Reed Foreman MD [place] Dec 31, 2014 Unknown [place] February 27, 2015 [place] March 12, 2015 Unknown [place] Fore[place] March 13, 2014 Unknown [place] Jul 23, 2014 Unknown [place]man [place] May 11, 2014 Unknown Reed Foreman MD [place] Dec 22, 2016 Unknown Reed Foreman MD [place] May 28, 2014 Unknown Reed Foreman MD [place] March 12, 2015 Unknown Reed Foreman MD [place] March 12, 2015 Unknown Reed Foreman MD [place] March 12, 2015 Problems Problem Type Condition ICD-9 Code Onset [...] Date End Date Status Dosage Atorvastatin Calcium [facility] [address]-68 40 mg Orally Once a day Active 1 tablet Social History Social History Element Qualifiers Date Reported Smoking . Status Former Smoker Quit in 1983Jul 13, 2016 Alcohol Use No. Jul 13, 2016 Alcohol Screening: No. Jul 13, 2016 Marital Status: . Jul 13, 2016 Do you drink alcohol? No. Jul 13, 2016 Occupation: . Self-employed Jul 13, 2016 Summary Purpose eClinicalWorks Submission
--- OUTSIDE RECORDS SUMMARY | 2019-04-01 11:05 | XMS REPORT ---
Author Author Reed Foreman Organization eClinicalWorks Address Unknown Phone Unavailable Care Team Providers Care Agricultural Technical Officer Name Role Phone Reed Foreman CP Unavailable [...] Date End Date Status Dosage Clopidogrel Bisulfate [facility] 44194127889 75MG Orally Once a day Active 1 tablet Results No Known Results Summary Purpose eClinicalWorks Submission
--- OUTSIDE RECORDS SUMMARY | 2019-04-01 11:05 | XMS REPORT ---
Author Author Reed Foreman Organization eClinicalWorks Address Unknown Phone Unavailable Care Team Providers Care Care Professional Name Role Phone Reed Foreman CP Unavailable [...] of artery bypass graft I25.810 Active Assessment CAD (coronary artery disease) of artery bypass graft I25.810 Active Problem S/P right coronary artery (RCA) stent placement Z95.5 Active Problem Former smoker Z87.891 Active Medications Medication Code System Code Instructions Start Date End Date Status Dosage Atorvastatin Calcium [facility] [address]-98 40 mg Orally Once a day Active 1 tablet Results No Known Results Summary Purpose eClinicalWorks Submission
--- OUTSIDE RECORDS SUMMARY | 2019-04-01 11:05 | XMS REPORT ---
Author Author Reed Foreman Organization eClinicalWorks Address Unknown Phone Unavailable Care Team Providers Care Airfield Manager Name Role Phone Reed Foreman Unavailable Encounters [...] 21, 2016 Unknown Reed Foreman MD [place] Jul [...] Date End Date Status Dosage Atorvastatin Calcium [facility] [address]-43 40 mg Orally Once a day Active 1 tablet Social History Social History Element Qualifiers Date Reported Smoking . Status Former Smoker Quit in 1984 Dec 29, 2016 Alcohol Use No. Dec 29, 2016 Alcohol Screening: Yes. Did you have a drink containing alcohol in the past year?: No, Points: 0, Interpretation: Negative Dec 29, 2016 Marital Status: . Dec 29, 2016 Do you drink alcohol? No. Dec 29, 2016 Occupation: . Self-employed Dec 29, 2016 Family history Qualifier Description Comment Date Reported Maternal Grandmother Comment not available Dec 29, 2016 Paternal Grandmother Comment not available Dec 29, 2016 Siblings Comment not available Dec 29, 2016 Maternal Grandfather Comment not available Dec 29, 2016 Children Comment not available Dec 29, 2016 Father myocardial infarction, Pacemaker Dec 29, 2016 Paternal Grandfather Comment not available Dec 29, 2016 Mother alive Arthritis, heart arrythmia, HTN Dec 29, 2016 Other: Comment not available Dec 29, 2016 Summary Purpose eClinicalWorks Submission
--- OUTSIDE RECORDS SUMMARY | 2019-04-01 11:05 | XMS REPORT ---
Author Author Reed Foreman Organization e[employer]Works Address Unknown Phone Unavailable Care Team Providers Care Art Department Head Name Role Phone Reed Foreman CP Unavailable [...] Date End Date Status Dosage Amlodipine Besylate [facility] 60109563999 5 MG by mouth daily Active 1 tablet Results No Known Results Summary Purpose eClinicalWorks Submission
--- OUTSIDE RECORDS SUMMARY | 2019-04-01 11:05 | XMS REPORT ---
Author Author Reed Foreman Organization eClinicalWorks Address Unknown Phone Unavailable Care Team Providers Care Molasses Coloring Operator Name Role Phone Reed Foreman CP [...] End Date Status Dosage Clopidogrel Bisulfate [facility] 32448760732 75 mg Orally Once a day Active 1 tablet Results No Known Results Summary Purpose eClinicalWorks Submission
--- OUTSIDE RECORDS SUMMARY | 2019-04-01 11:05 | XMS REPORT ---
Author Author Reed Foreman Organization [employer] Address Unknown Phone Unavailable Care Team Providers Care Cash Accounting Clerk Name Role Phone Reed Foreman CP Unavailable [...] Date End Date Status Dosage Amlodipine Besylate FORMERLY NAMED [facility] [id number] 5MG by mouth twice a day (bid) Active 1 tablet Results No Known Results Summary Purpose [employer] Submission
[2019-04-01 11:50] LABS: INR 0.87; PROTHROMBIN TIME 12.3 seconds (11.9-14.5)
[2019-04-01 11:51] LABS: BASOPHILS % 0.6 % (0.0-1.0); EOSINOPHILS # (AUTO) 0.3 (0.0-0.4); EOSINOPHILS % 4.2 % (0.0-6.0); HEMATOCRIT 43.6 % (38.2-49.6); HEMOGLOBIN 15.2 g/dL (14.0-18.0); LYMPHOCYTES # (AUTO) 2.2 (1.0-3.2); LYMPHOCYTES % 30.5 % (18.0-39.1); MEAN CORPUSCULAR HEMOGLOBIN 30.8 pg (28-32); MEAN CORPUSCULAR HGB CONC 34.9 g/dL (31-35); MEAN CORPUSCULAR VOLUME 88.4 fL (81-99); MONOCYTES # (AUTO) 0.6 (0.2-0.8); MONOCYTES % 8.5 % (4.4-11.3); NEUTROPHILS % 55.8 % (38.7-80.0); PARTIAL THROMBOPLASTIN TIME 26.1 seconds (23.8-35.5); PLATELET COUNT 208 x10e3/uL (140-360); RED BLOOD COUNT 4.93 x10e6/uL (4.3-5.7); RED CELL DISTRIBUTION WIDTH 13.8 % (11.7-14.4)
--- NOTE | 2019-04-01 12:08 | Diagnostic Imaging Report ---
Exam: Head CT without contrast Indication: Dizziness and near syncope Comparisons: None Technique: Axial images were obtained from the skull base to the vertex without intravenous contrast. Coronal and sagittal images reconstructed from the axial data. Dose modulation, iterative reconstruction, and/or weight based adjustment of the mA/kV was utilized to reduce the radiation dose to as low as reasonably achievable. FINDINGS: Scalp/skull: No abnormalities. Extra-axial spaces: No masses. No fluid collections. Brain sulci: Mildly prominent. Ventricles: Mild compensatory dilatation. No hydrocephalus. Parenchyma: Scattered hypodensities in the supratentorial white matter are small vessel ischemic changes. No masses, hemorrhage, acute or chronic cortical vascular insults. Sellar/suprasellar region: No abnormalities. Craniocervical junction: Patent foramen magnum. No Chiari one malformation. Incidental findings: Atherosclerotic calcifications in the carotid siphons and intradural vertebral arteries. IMPRESSION: 1. No acute intracranial abnormalities. 2. Mild chronic microvascular ischemic changes. A preliminary report was provided by Dr. Orantes on 04/01/2019 12:07 PM. The images and preliminary report provided by the neuroradiology fellow were reviewed and a final report issued by Dr. Cavanaugh neuroradiology faculty on 04/01/2019 at 1:52 PM Signed by: Dr. Elizabeth Rivera M.D. on 04/01/2019 1:52 PM
[2019-04-01 12:17] LABS: CLARITY,URINE HAZY (CLEAR); COLOR,URINE YELLOW (YELLOW); LEUKOCYTE ESTERASE ,URINE NEGATIVE (NEGATIVE); NITRITE,URINE NEGATIVE (NEGATIVE); PROTEIN,URINE DIPSTICK NEGATIVE (NEGATIVE)
[2019-04-01 12:18] LABS: BACTERIA,URINE FEW /HPF; BILIRUBIN,URINE NEGATIVE (NEGATIVE); EPITHELIAL CELLS,URINE FEW /LPF; KETONES,URINE NEGATIVE (NEGATIVE); RBC,URINE 0-5 /HPF (0-5); URINE UROBILINOGEN 0.2 mg/dL (0.2 - 1)
--- NOTE | 2019-04-01 12:20 | Diagnostic Imaging Report ---
EXAMINATION: CHEST SINGLE (PORTABLE) INDICATION: Near syncope. COMPARISON: Chest radiograph 02/24/2013. FINDINGS: TUBES and LINES: None. LUNGS: Lungs are moderately inflated. Mild patchy bibasilar opacities left greater than right. No evidence of lobar pneumonia or pulmonary edema. PLEURA: No pleural effusion or pneumothorax. HEART AND MEDIASTINUM: The cardiomediastinal silhouette is unremarkable. Status post CABG. Atherosclerotic calcification of the aortic arch. BONES AND SOFT TISSUES: No acute osseous abnormality. Status post median sternotomy. Hyperdensity overlying the right upper hemithorax may represent postsurgical changes, overlying material, or artifact. UPPER ABDOMEN: No free air under the diaphragm. IMPRESSION: Mild patchy bibasilar opacities, likely atelectasis, although early pneumonia is possible in the appropriate clinical setting. Suggest follow-up chest radiograph to assess for resolution. Signed by: Dr. Robb Amin MD on 04/01/2019 12:17 PM
[2019-04-01 12:56] LABS: ALANINE AMINOTRANSFERASE 32 IU/L (0-55); ALBUMIN 3.9 g/dL (3.5-5.0); ALBUMIN/GLOBULIN RATIO 1.2 (0.8-2.0); ALKALINE PHOSPHATASE 56 IU/L (40-150); ANION GAP 12.1 mmol/L (8-16); BLOOD UREA NITROGEN 15 mg/dL (7-26); BUN/CREATININE RATIO 17 (6-25); CALCIUM 9.5 mg/dL (8.4-10.2); CARBON DIOXIDE 25 mmol/L (22-29); CHLORIDE 103 mmol/L (98-107); CREATINE KINASE 271 IU/L (30-200); CREATININE, SERUM 0.89 mg/dL (0.72-1.25); EST GLOMERULAR FILTRATION RATE > 60 ML/MIN (60-); GLUCOSE 100 mg/dL (74-118); MAGNESIUM 2.3 MG/DL (1.3-2.1); POTASSIUM 4.1 mmol/L (3.5-5.1); SODIUM 136 mmol/L (136-145)
[2019-04-01] MEDS ORDERED: ONDANSETRON HCL INJ 2MG/ML 2ML 2 MG/ML VIAL IV PRN (13:15)
[2019-04-01] MEDS ORDERED: NITROGLYCERIN 0.4 MG SUBL SL PRN (13:15)
[2019-04-01 13:16] LABS: THYROID STIMULATING HORMONE 3.423 uIU/mL (0.350-4.940)
[2019-04-01] MEDS ORDERED: FAMOTIDINE 20 MG/2 ML VIAL IV SCH (13:30)
[2019-04-01] MEDS ORDERED: MORPHINE SULFATE INJ 4 MG/ML INJ 1ML IV PRN (13:45)
[2019-04-01 13:51] VITALS: BP 152/71
--- OUTSIDE RECORDS SUMMARY | 2019-04-01 14:00 | XMS REPORT ---
[facility] Address Unknown Phone Unavailable Care Team Providers Care Asbestos Handler Name Role Phone Kelechi MURRAY Unavailable Unavailable Problems This patient has no known problems. Allergies, Adverse Reactions, Alerts This patient has no known allergies or adverse reactions. Medications This patient has no known medications. Results Test Description Test Time Test Comments Text Results Atomic Results Result Comments CHEST SINGLE (PORTABLE) 2019-04-01 12:10:00 [place] [address] Patient Name: PATRICIA LAU MR #: [id number] : 1950 Age/Sex: 69/M Req #: [id number] Adm Physician: Ordered by: CRIS MURRAY MD Report #: [id number] Location: ER Room/Bed: Procedure: [id number] DX/CHEST SINGLE (PORTABLE) Exam Date: 04/01/19 Exam Time: 1150 REPORT STATUS: Signed EXAMINATION: CHEST SINGLE (PORTABLE) INDICAT ION: Near syncope. COMPARISON: Chest radiograph 02/24/2013. FINDINGS: TUBES and LINES: None. LUNGS: Lungs are moderately inflated. Mild patchy bibasilar opacities left greater than right. No evidence of lobar pneumonia or pulmonary edema. PLEURA: No pleural effusion or pneumothorax. HEART AND MEDIASTINUM: The cardiomediastinal silhouette is unremarkable. Status post CABG. Atherosclerotic calcification of the aortic arch. BONES AND SOFT TISSUES: No acute osseous abnormality. Status post median sternotomy. Hyperdensity overlying the right upper hemithorax may represent postsurgical changes, overlying material, or artifact. UPPER ABDOMEN: No free air under the diaphragm. IMPRESSION: Mild patchy bibasilar opacities, likely atelectasis, although early pneumonia is possible in the appropriate clinical setting. Suggest follow-up chest radiograph to assess for resolution. Signed by: Dr. Sherrie Howell MD on 04/01/2019 12:17 PM Dictated By: SHERRIE HOWELL MD 16 Transcribed By: BRIELLE on 04/01/191216 COPY TO: CRIS MURRAY MD CT BRAIN WO 2019-04-01 12:01:00 [place] [address] Patient Name: PATRICIA LAU MR #: [id number] : 1950 Age/Sex: 69/M Req #: [id number] Adm Physician: Ordered by: CRIS MURRAY MD Report #: [id number] Location: ER Room/Bed: Procedure: [id number] CT/CT BRAIN WO Exam Date: Exam Time: REPORT STATUS: Signed Exam: Head CT without contrast Indication: Dizziness and near syncope Comp arisons: None Technique: Axial images were obtained from the skull base to the vertex without intravenous contrast. Coronal and sagittal images reconstructed from the axial data. Dose modulation, iterative reconstruction, and/or weight based adjustment of the mA/kV was utilized to reduce the radiation dose to as low as reasonably achievable. FINDINGS: Scalp/skull: No abnormalities. Extra-axial spaces: No masses. No fluid collections. Brain sulci: Mildly prominent. Ventricles: Mild compensatory dilatation. No hydrocephalus. Parenchyma: Scattered hypodensities in the supratentorial white matter are small vessel ischemic changes. No masses, hemorrhage, acute or chronic cortical vascular insults. Sellar/suprasellar region: No abnormalities. Craniocervical junction: Patent foramen magnum. No Chiari one malformation. Incidental findings: Atherosclerotic calcifications in the carotid siphons and intradural vertebral arteries. IMPRESSION: 1. No acute intracranial abnormalities. 2. Mild chronic microvascular ischemic changes. A preliminary report was provided by Dr. Orantes on 04/01/2019 12:07 PM. The images and preliminary report provided by the neuroradiology fellow were reviewed and a final report issued by Dr. Cavanaugh neuroradiology faculty on 04/01/2019 at 1:52 PM Signed by: Dr. Kevin Rivera M.D. on 04/01/2019 1:52 PM Dictated By: KEVIN RIVERA MD 1352 Transcribed By: BRIELLE on 04/01/19 1352 COPY TO: CRIS MURRAY MD
[2019-04-01 14:03] VITALS: BP 152/71
[2019-04-01 14:17] VITALS: BP 152/71
--- NOTE | 2019-04-01 14:23 | NUR ---
patient received awake and alert. see admit assess. sinus rhythm. npo at this minute. 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 no signs of distress at this time.
[2019-04-01] MEDS ORDERED: ACETAMINOPHEN 325 MG TAB PO PRN (15:00)
[2019-04-01 16:07] LABS: CREATINE KINASE MB 3.8 ng/mL (0-5.0)
[2019-04-01] MEDS ORDERED: MECLIZINE HCL 12.5 MG TAB PO PRN (17:00)
[2019-04-01] MEDS ORDERED: HYDROCODONE/APAP 5MG-325MG TAB PO PRN (17:15)
[2019-04-01 19:24] VITALS: BP 152/71
[2019-04-01 20:00] VITALS: BP 146/68
[2019-04-01] MEDS ORDERED: ATORVASTATIN 20 MG TAB PO SCH (21:00)
[2019-04-01] MEDS ORDERED: MELATONIN 5 MG TABLET PO PRN (21:00)
--- NOTE | 2019-04-01 21:39 | Consultation ---
DATE OF CONSULTATION: Cardiac Consultation REASON FOR CONSULTATION: Syncope. HISTORY OF PRESENT ILLNESS: A 69-year-old gentleman, who is known to me with coronary artery disease, status post PCI after his coronary artery bypass surgery, which was dated 1994. He is hypertensive. He is known to have GERD, Banks esophagus, decreased hearing, and degenerative joint disease. At one stage, the patient has a history of atrial fibrillation. His atrial fibrillation had "slow heart rate." We need to stop this in addition to the fact "I have lung symptoms and beta-anthony makes me to be very tired." He had a stress test, which was low risk stress test on June 2018. He does have class II severe exertional fatigue with angina, which is very stable. He is also diabetic. He is hypercholesterolemic. Today, he was in his usual state of health. He felt ill, weak, and dizzy he said and this lasted for a longer time. He decided to come to the emergency room. With that, he had diaphoresis. He denied having any chest pain. Regarding his diabetes, he is on oral therapy and followed by his PCP. His PCP now is Dr. Ennis. He does have degenerative joint disease of both knees and he had left and right knee stem cell injection. He just came from [place]. He was there and he came back for two weeks ago and he was able to do all physical activities to certain extent when he was there. CURRENT MEDICATIONS: 1. Aspirin 81 mg a day. 2. Plavix 75 mg a day. 3. Pravastatin 40 mg a day. 4. Amlodipine 5 mg twice a day. 5. Protonix 40 mg a day. 6. Flomax 0.4 mg a day. 7. Tizanidine one tablet at bedtime. ALLERGIES: CARAFATE CAUSING THE PATIENT DIZZINESS AND THE PATIENT IS NOT ON BETA-ANTHONY BECAUSE AT ONE STAGE, HE HAD ATRIAL FIBRILLATION, BUT WHEN HE WAS CONVERTED TO SINUS, HE WAS VERY BRADYCARDIC AND SECOND "IT DOES NOT LET ME BREATHE." SOCIAL HISTORY: He is . He stopped smoking in 1983. He does not drink alcohol. He works for [employer]. PAST MEDICAL HISTORY: 1. Coronary artery bypass surgery in 1994. 2. PCI of the RCA using 2.5 x 22 Integrity stent. Patent ROSS artery to LAD and patent stent to circumflex. Ejection fraction is 55% and this was by cardiac cath done in 2013. 3. Hypertension. 4. Hypercholesteremia. 5. Decreased hearing. 6. Banks esophagus. 7. Prostate problem. 8. Degenerative joint disease. 9. History of nosebleed. 10. Bilateral inguinal hernia surgery. 11. COPD. FAMILY HISTORY: Mother, she does have some heart arrhythmias and hypertension. Father of myocardial infarction, had pacemaker prior to . One brother of homicide at age 33. REVIEW OF SYSTEMS: GENERAL: No fever. No chills. HEENT: Decreased hearing. PULMONARY: Moderate shortness of breath on exertion. No pleuritic chest pain. No cough. No hemoptysis. CARDIAC: As per acute illness. GI: Occasional heartburn. HEMATOLOGIC: Easy bruising, but no bleeding. : Frequency, but no hematuria and no dysuria. MUSCULOSKELETAL: Leg and knee pain. PERIPHERAL VASCULAR: Mild peripheral edema. NEUROLOGIC: Nonfocal. PHYSICAL EXAMINATION: VITAL SIGNS: Height of 5 feet 9 inches. Weight of 230 pounds. Blood pressure 120/70, heart rate of 60, and respiratory rate of 18. HEENT: Pupils are equal, reactive. NECK: No elevation of jugular venous pulsation. CHEST: Decreased lung expansion, but clear to auscultation and percussion. Sternotomy scar is noted. Decreased air entry in both lung boateng. ABDOMEN: Soft with good bowel sounds. EXTREMITIES: No cyanosis, no clubbing. Mild peripheral edema. NEUROLOGIC: Nonfocal. LABORATORY DATA: Electrolytes showed sodium of 136, potassium 4.1, BUN 15, and creatinine of 0.9. White blood cell count of 7.2, hemoglobin 15.2, hematocrit 43%, platelet count of 208,000. PT of 12 seconds, PTT of 26 seconds. First set of cardiac enzymes normal. Chest x-ray by report showed no major abnormality. CT of the head was negative. IMPRESSION AND PLAN: 1. Near syncope and syncope. 2. Coronary artery disease, status post prior PCI and bypass. 3. PCI to circumflex and right coronary artery. 4. Known to have sinus bradycardia. 5. Hypertension. 6. Shortness of breath on exertion. 7. Hypercholesteremia. The patient will be admitted, will be observed on telemetry to rule out jasmyne tachyarrhythmia, which is most likely the cause of his presentation. Another differential diagnosis is coronary artery disease, so second cardiac enzyme will be done. I doubt his presentation have anything to do with his recent trip to [place]. However, we will check D-dimer on the admission, PT and PTT to see if it is elevated. Depending on his course, further steps to be done. We discussed differential diagnosis between sick sinus syndrome, coronary artery disease, and unlikely probability of other differential diagnosis such as hypoglycemia, etc. The patient will be observed and followed. MD STACI Jones/MODL /[id number]
[2019-04-02] VITALS: BP 142/64
--- NOTE | 2019-04-02 01:18 | History and Physical ---
CHIEF COMPLAINT: Dizziness. HISTORY OF PRESENT ILLNESS: This is 69-year-old male with history of hypertension, history of atherosclerosis of carotid arteries, status post coronary artery disease with RCA stent, and also underlying hypertension, who presents to the ED with complaints of underlying dizziness that occurred while he was at a local restoration. The patient reports that when he was standing up, he was complaining of some dizziness, sat down and continued to be very dizzy for more than 5 minutes. He reports that things were spinning around him. No associated nausea or vomiting. No chest pain, no palpitations. Denies any recent sickness, cough, congestion, fever, or any diarrhea. Denies any shortness of breath. The patient was seen and evaluated at bedside on the medical floor. Currently, he is doing much better with no other complaints. His dizziness is all resolved. REVIEW OF SYSTEMS: Pertinent positives: Underlying dizziness and vertigo. Pertinent negatives: Denies any chest pain, palpitation, nausea, vomiting, diarrhea, dysuria, hematuria, frequency, urgency, lightheadedness, cough, congestion, fever, shortness of breath, abdominal pain, or any other complaints. The rest of 14-point review of systems have been reviewed with the patient and are negative. ALLERGIES: SUCRALFATE. HOME MEDICATIONS: Amlodipine, one tab p.o. daily, aspirin 81 mg daily, Plavix 75 mg a day, Protonix 40 mg daily, Flomax 0.4 mg daily. PAST MEDICAL HISTORY: History of coronary artery disease with RCA stents in the past, also had a CABG, multiple left heart caths, hyperlipidemia, hypertension, Banks's esophagus, acid reflux. PAST SURGICAL HISTORY: Several left heart caths in the past and stent placement, cholecystectomy, bypass surgery, bilateral inguinal hernia repair, cataract surgery, root canals. FAMILY HISTORY: Hypertension and diabetes. SOCIAL HISTORY: No drugs. No alcohol. He smoked many years ago. Good social support. VITAL SIGNS: Temperature is 97.3, pulse 67, respiratory rate is 16, blood pressure 152/71, pulse ox 96% on room air. LABORATORY DATA: Lab findings showed a white count of 7.2, hemoglobin 15.2, hematocrit 43, platelets of 208. Coagulation: PT 12, INR 0.87, PTT 26. D-dimer was 0.48. Chemistry, sodium 136, potassium 4.1, chloride 103, bicarb 25, anion gap 12, BUN 16, creatinine 0.89, glucose is 117, calcium 9.5, magnesium 2.3, total bilirubin 0.6, AST 33, ALT 32, alk phos 56. CK 243 and troponins are negative. BNP 42. Total protein 7.2, albumin is 3.9. TSH is 3.4. UA is negative. IMAGING STUDIES: Chest x-ray showed some mild patchy bibasilar opacity, likely atelectasis. CT brain showed no acute intracranial abnormalities. PHYSICAL EXAMINATION: GENERAL: Not in acute distress, alert and oriented x3. Cooperative on examination. HEENT: Head is normocephalic, atraumatic. Eyes; pupils are equal, round, and reactive to light bilaterally. Extraocular motions are intact. NECK: Supple. Good range of motion. Throat, no evidence of any erythema or exudate in the posterior pharynx. Has poor dentition. PULMONARY: Clear to auscultation bilaterally. No wheezing, no rales, no rhonchi, no crackles appreciated cardiovascular positive S1, S2. No murmurs, rubs, or gallops. ABDOMEN: Soft, nondistended, nontender to palpation. Bowel sounds present. MUSCULOSKELETAL: Strength is 5/5 throughout. No evidence of any muscle deficits on examination. No weakness appreciated. NEUROLOGICAL: Cranial nerves II through XII grossly intact. No evidence of any neurological deficits on exam. SKIN: Intact, warm to touch. Good cap refill. PSYCHIATRIC: Normal affect and mood. EXTREMITIES: No edema. Good range of motion throughout. IMPRESSION: 1. Dizziness with underlying vertigo, now resolved. 2. History of coronary artery disease with history of bradycardia in the past. 3. Hypertension. 4. Hyperlipidemia. PLAN: At this time, continue same cardioprotective medications. Trend troponins. Cardiology consulted and continue cardiac telemetry, as he has a history of sinus bradycardia, which could be leading to his underlying dizziness and lightheadedness. I will go ahead and consult with Neurology as well to see if she will agree with an MRI of the brain. He does have a history of carotid disease, being managed by Cardiology. We will add meclizine p.r.n. for dizziness. He is currently not dizzy on examination. Resume same home medications with no changes. Get a.m. labs. Order a TSH in the morning as well. MD MAK Boucher/WES /[id number]
[2019-04-02 04:00] VITALS: BP 148/74
[2019-04-02 05:51] LABS: BASOPHILS % 0.6 % (0.0-1.0); EOSINOPHILS # (AUTO) 0.3 (0.0-0.4); EOSINOPHILS % 5.2 % (0.0-6.0); HEMATOCRIT 44.1 % (38.2-49.6); HEMOGLOBIN 14.8 g/dL (14.0-18.0); LYMPHOCYTES # (AUTO) 1.8 (1.0-3.2); LYMPHOCYTES % 29.1 % (18.0-39.1); MEAN CORPUSCULAR HEMOGLOBIN 30.1 pg (28-32); MEAN CORPUSCULAR HGB CONC 33.6 g/dL (31-35); MEAN CORPUSCULAR VOLUME 89.6 fL (81-99); MONOCYTES # (AUTO) 0.6 (0.2-0.8); MONOCYTES % 10.4 % (4.4-11.3); NEUTROPHILS # (AUTO) 3.4 (2.1-6.9); NEUTROPHILS % 54.4 % (38.7-80.0); PLATELET COUNT 229 x10e3/uL (140-360); RED BLOOD COUNT 4.92 x10e6/uL (4.3-5.7); RED CELL DISTRIBUTION WIDTH 13.7 % (11.7-14.4)
[2019-04-02 06:26] LABS: CREATINE KINASE MB 3.9 ng/mL (0-5.0)
[2019-04-02 06:30] LABS: ALANINE AMINOTRANSFERASE 30 IU/L (0-55); ALBUMIN 3.5 g/dL (3.5-5.0); ALBUMIN/GLOBULIN RATIO 1.1 (0.8-2.0); ALKALINE PHOSPHATASE 49 IU/L (40-150); ANION GAP 12.1 mmol/L (8-16); BLOOD UREA NITROGEN 13 mg/dL (7-26); BUN/CREATININE RATIO 15 (6-25); CALCIUM 9.3 mg/dL (8.4-10.2); CARBON DIOXIDE 28 mmol/L (22-29); CHLORIDE 104 mmol/L (98-107); CHOL/HDL RATIO 3.6 (3.9-4.7); CHOLESTEROL 187 MD/DL (0-199); CREATININE, SERUM 0.86 mg/dL (0.72-1.25); EST GLOMERULAR FILTRATION RATE > 60 ML/MIN (60-); GLUCOSE 96 mg/dL (74-118); HDL CHOLESTEROL 52 MG/DL (40-60); POTASSIUM 4.1 mmol/L (3.5-5.1); SODIUM 140 mmol/L (136-145)
--- NOTE | 2019-04-02 06:50 | NUR ---
handoff report received. patient alert and oriented and in no distress. call salazar within reach and bed in lowest position.
[2019-04-02 07:20] VITALS: BP 145/66
[2019-04-02 07:27] LABS: LDL CHOLESTEROL 104 MG/DL (60-130); TRIGLYCERIDES 154 MG/DL (0-149)
[2019-04-02] MEDS ORDERED: PANTOPRAZOLE SOD 40 MG TABEC PO SCH (07:30)
[2019-04-02] MEDS ORDERED: TAMSULOSIN HCL 0.4 MG CAP PO SCH (09:00)
[2019-04-02] MEDS ORDERED: CLOPIDOGREL BISULFATE 75 MG TAB PO SCH (09:00)
[2019-04-02] MEDS ORDERED: ASPIRIN 81 MG CHEW TAB PO SCH (09:00)
[2019-04-02] MEDS ORDERED: AMLODIPINE BESYLATE 5 MG TAB PO SCH (09:00)
[2019-04-02] MEDS ORDERED: AMLODIPINE BESYLATE 10 MG TAB PO SCH (09:00)
[2019-04-02 09:53] VITALS: BP 145/66
--- NOTE | 2019-04-02 11:14 | NUR ---
CASE MANAGEMENT INITIAL ASSESSMENT Bacteriology Professor to bedside to discuss plan of care with patient/family. CM/SW role and care transitions discussed. Anticipated discharge plan discussed along with duration of care. CM/SW discussed patients right to make decisions in care. CM/SW work hours given. Patient lives: [facility] Admit/Transfer: ER Hospital/ER visits since last admit: 0 POA/Emergency contact: : DELORES [phone] Current/Previous Home Health: NO PCP/Follow-up Care: DR. BETTINA RAZO WITH [facility] Current/Previous DME: NONE Medications (referring to index hospitalization or the first time you were in the hospital) N/A a. Were changes made in your medications when you were in the hospital on [date of index hospitalization]? Yes No Not sure Explain: N/A Note: If no or not sure, please skip to question d b. Did you understand the changes? Yes No Explain: c. Were you able to obtain your new medications right away? Yes No n/a SNF only Explain: d. Were you able to take your medications like the doctor wanted you to? Yes No Explain: e. Did the hospital give you an accurate, easy to understand list of medications when you left? Yes No n/a SNF only Explain: Scale of 1-10 how comfortable does patient feel with disease management in outpatient settin. UNDERSTANDS DISEASE PROCESSES AND MEDICATIONS Other Services: 0 Employment Status: EMPLOYED. GOING TO [place] ALL NEXT WEEK TO WORK. WORKS WITH [employer] Areas of Concerns: NONE Referral Needs: NONE. NEUROLOGY TO SEE PT TODAY. MAKING APPT IN THE MORNING TO SEE DR. REILLY WEEK AFTER NEXT Education Needs: IF ANY NEW MEDS OR DX; EDUCATED ON BELL LETTER AND HE VERBALIZED UNDERSTANDING AND SIGNED IMM/BELL given and signed (if applicable): YES BELL Goal for discharge:TO RETURN HOME TO , AND BACK TO WORK CM/SW left business card at the bedside with contact information. Name and number was also written on the patients whiteboard. Patient verbalized understanding of discussion. CM will follow-up with ongoing discharge and transition of care needs.
[2019-04-02 12:17] VITALS: BP 146/65
[2019-04-02 13:42] LABS: CREATINE KINASE 218 IU/L (30-200)
[2019-04-02 16:03] VITALS: BP 151/69
--- NOTE | 2019-04-02 16:20 | NUR ---
patient alert and oriented. discharge instructions given to patient, patient verbalized understanding. IV discontinued, catheter in tact and small dressing applied. Patient refused wheelchair assistance, but will be escorted to personal auto for to drive home.
--- NOTE | 2019-04-03 06:55 | Discharge Summary ---
FINAL DISCHARGE DIAGNOSES: 1. Dizziness, now all resolved, likely benign positional peripheral vertigo. 2. History of coronary artery disease with history of bradycardia in the past, now cleared for discharge by Cardiology. 3. Hypertension. 4. Hyperlipidemia. CONSULTANTS: Cardiology. PHYSICAL EXAMINATION: VITAL SIGNS: Temperature 96.5, pulse 86, respiratory rate is 20, blood pressure 151/69, and pulse ox 97% on room air. LAB FINDINGS: Show white count is 6.1, hemoglobin 14, hematocrit is 44, and platelets of 229. Coagulation; PT 12, INR 0.87, PTT 26. D-dimer slightly elevated. Chemistry; sodium 140, potassium 4.1, chloride 104, bicarb 28, anion gap of 12, BUN is 13, creatinine is 0.86, glucose 96, calcium 9.3. LFTs were normal. CK 218. Troponins were all negative. Albumin was 3.5, LDL was 104, TSH is 3. Vitamin B12 is 416. Urinalysis was found to be negative. IMAGING: CT of brain, no acute finding seen. HOSPITAL COURSE: This is a 69-year-old male, who came into the ED after he had a dizzy spill while he was at a local function. The patient reports he was dizzy for approximately 3 minutes, but then resolved on its own. On arrival here to the hospital, his dizziness all was resolved. The patient was admitted under observation for further evaluation. The patient's dairy truck driver came to evaluate the patient as well. He recommends outpatient stress test at a later date as an outpatient. He has been cleared by Cardiology for discharge home. There were no alarms on cardiac telemetry with no other issues. The patient was very anxious to be being discharged and currently, he did not have any dizziness since admission. At this time, he wants to be discharged and I recommended an outpatient neurology evaluation and also possibly MRI if this continues or comes back. He is currently asymptomatic with no other issues. Of note, he is actually asymptomatic on the day of admission as well. At this time, the patient has been cleared for discharge by Cardiology. We will go ahead and discharge the patient at this time. The patient verbalized understanding and agrees with plan of care as described above. On the day of discharge, vital signs stable, labs being stable. The patient was seen, evaluated, and examined thoroughly on the day of discharge with no other complaints. The patient verbalized understanding and agreed to plan of care to follow up as an outpatient with primary care physician in 1 week and a neurologist in 2-3 weeks' time as needed. MEDICATIONS: See med reconciliation form. DISPOSITION: Home. CONDITION: Stable. DIET: Heart healthy. In the event of any worsening symptoms, the patient was advised to come back to the ED for further evaluation. Discharge summary took greater than 35 minutes. MD MAK Boucher/MODL /[id number]
== END 2019-04-02 16:40 | disposition home or self-care (01) ==
LOC: ER 11:00 → ERHOLD 13:57 → IMCU 14:21
PROVIDERS: ADMIT Internal Medicine; ATTEND Internal Medicine
DX: R42 Dizziness and giddiness (principal); I25.10 Atherosclerotic heart disease of native coronary artery without angina pectoris; I10 Essential (primary) hypertension; E78.5 Hyperlipidemia, unspecified; K21.9 Gastro-esophageal reflux disease without esophagitis; K20.9 Esophagitis, unspecified; I48.91 Unspecified atrial fibrillation; Z79.01 Long term (current) use of anticoagulants; E78.00 Pure hypercholesterolemia, unspecified; Z79.899 Other long term (current) drug therapy; E11.9 Type 2 diabetes mellitus without complications; H91.90 Unspecified hearing loss, unspecified ear; M19.90 Unspecified osteoarthritis, unspecified site; J44.9 Chronic obstructive pulmonary disease, unspecified; Z95.1 Presence of aortocoronary bypass graft; R00.1 Bradycardia, unspecified; Z95.5 Presence of coronary angioplasty implant and graft
CPT/HCPCS: 36415 ×2; 70450; 71045; 80053 ×2; 80061; 81001; 82550 ×2; 82553 ×2; 82607; 83735; 83880; 84443 ×2; 84484 ×2; 85025 ×2; 85379; 85610; 85730; 93005; 99284; G0378 ×2; S0164